=== PATIENT | female | born 1940 | race Caucasian/White ===

== ENCOUNTER 2017-01-08 10:48 | Inpatient (IN) | payer MEDICARE ==
[2017-01-08] MEDS ORDERED: NS 0.9% 1000 ML* 1,000 ML IV SCH (11:15)
[2017-01-08] MEDS ORDERED: Meclizine TAB* 12.5 MG PO ONE (11:15)
[2017-01-08 11:29] LABS: Hematocrit 34 % (35-47); Hemoglobin 11.2 g/dl (12.0-16.0); Mean Corpuscular HGB Conc 33 g/dl (31-36); Mean Corpuscular Hemoglobin 31 pg (27-31); Mean Corpuscular Volume 95 fL (80-97); Mean Platelet Volume 8 um3 (7.4-10.4); Red Blood Count 3.57 10^6/ul (4.0-5.4); Red Cell Distribution Width 13 % (10.5-15); White Blood Count 6.6 10^3/ul (3.5-10.8)
[2017-01-08 11:44] LABS: Albumin 3.5 g/dL (3.2-5.2); BUN/Creatinine Ratio 15.1 (8-20); C Reactive Protein 49.59 mg/L (< 5.00); EGFR African American 30.3 (>60); EGFR Non-African American 23.5 (>60); Globulin 3.4 g/dL (2-4); Potassium 3.4 mmol/L (3.5-5.0); Total Bilirubin 0.4 mg/dL (0.2-1.0); Total Protein 6.9 g/dL (6.4-8.9)
[2017-01-08 11:46] LABS: Troponin I 0.01 ng/mL (<0.04)
--- NOTE | 2017-01-08 12:13 | RAD ---
Indication: Dizziness. CT of the brain was performed without IV contrast. Ventricular structures are midline. No midline shift is noted. Central and cortical atrophy is noted. Periventricular lucency consistent with chronic ischemic white matter changes are noted. There is no intracranial mass or hemorrhage. The bony calvaria shows no fracture. Mastoid air cells and paranasal sinuses are clear. IMPRESSION: Chronic ischemic White matter change without evidence of intracranial mass or hemorrhage.
[2017-01-08 12:19] LABS: TSH (Thyroid Stimulating Horm) 0.66 mcIU/mL (0.34-5.60)
--- NOTE | 2017-01-08 13:22 | RAD ---
Indication: Dizziness. Single frontal view of the chest performed at 1125 hours was reviewed. Comparison is made with previous exam dated August 14, 2012. No mediastinal shift is noted. Heart is of normal size and configuration. Lung henao appear clear. IMPRESSION: NO ACTIVE CARDIOPULMONARY DISEASE IS NOTED.
[2017-01-08] MEDS ORDERED: Dextrose 50% Syringe 50 ML* 25 GM/50 ML SYRINGE IV PUSH PRN (15:15)
[2017-01-08] MEDS ORDERED: Potassium Chlor TAB* 20 MEQ TAB.ER PO ONE (15:31)
[2017-01-08] MEDS: NS 0.9% 1000 ML* 1,000 ML IV SCH ×2 (15:38→22:10)
[2017-01-08] MEDS ORDERED: Aspirin Low Dose CHEW TAB* 81 MG PO ONE (15:53)
[2017-01-08] MEDS ORDERED: Aspirin Low Dose CHEW TAB* 81 MG ONE (15:59)
[2017-01-08] MEDS: Insulin LISPRO* 1 UNITS UNIT SUBCUT SCH (16:18)
[2017-01-08 17:29] LABS: Urine Bacteria 1+ (Absent); Urine Bilirubin Negative (Negative); Urine Glucose Negative (Negative); Urine Nitrite Negative (Negative)
--- NOTE | 2017-01-08 17:51 | ED ---
Jai Jacobson Rebecca, scribed for Nishant Cline MD on 01/08/17 at 1118 . Dizziness - HPI Summary HPI Summary: Pt is a 76 y/o F BIBA who presents to ED c/o moderate dizziness. Reports that dizziness began last night and has been constant since last night, characterized as the room spinning and near syncopal. Additionally c/o fever/ chills last night, nausea (resolved), mild rhinorrhea, and eye drainage/ pruritis. Notes an episode of being unable to walk up stairs earlier today, stating "my legs would not work" which has resolved. Denies ear pain, cough, CP , palpitations. No PMHx CHF. - History Of Current Complaint Chief Complaint: EDSyncope Stated Complaint: SYNCOPE Time Seen by Provider: 01/08/17 11:08 Hx Obtained From: Patient Onset/Duration: Still Present Timing: Constant Severity Currently: Moderate Character: Room Spinning - and near syncopal Associated Signs And Symptoms: Positive: Nausea, Inability to Walk - One episode , resolved, Other: - Rhinorrhea, eye drainage and pruritis. Negative: Chest Pain, Palpitations - Allergies/Home Medications Allergies/Adverse Reactions: Allergies Allergy/AdvReac Type Severity Reaction Status Date / Time Penicillins Allergy Severe Rash Verified 06/27/13 16:20 Tetanus Toxoid Allergy Severe RASH, GI Verified 06/27/13 16:20 UPSET SPIDER BITES Allergy Severe "THEY Uncoded 06/27/13 16:21 DON'T HEAL" Home Medications: Home Medications Alendronate Sodium [Fosamax-] 70 mg PO Q7D 01/08/17 [History Confirmed 01/08/17] Atenolol & Chlorthalidone [Atenolol/Chlorthalidone 50-25 mg-] 1 tab PO BEDTIME 01/08/17 [History Confirmed 01/08/17] Cholecalciferol [Vitamin D3] 5,000 unit PO DAILY 01/08/17 [History Confirmed 10/22] Magnesium 500 mg PO DAILY 01/08/17 [History Confirmed 01/08/17] Sitagliptin (NF) [Januvia (NF)] 50 mg PO DAILY 01/08/17 [History Confirmed 01/08] PMH/Surg Hx/FS Hx/Imm Hx Endocrine/Hematology History: Reports: Hx Diabetes - METFORMIN Denies: Hx Anticoagulant Therapy Cardiovascular History: Reports: Hx Hypertension - LISINOPRIL, HCTZ Respiratory History: Denies: Hx Asthma - Surgical History Surgery Procedure, Year, and Place: hysterectomy Infectious Disease History: No Infectious Disease History: Denies: Traveled Outside the [place] in Last 30 Days - Family History Known Family History: Positive: Unknown - Adopted - Social History Alcohol Use: None Substance Use Type: Reports: None Review of Systems Positive: Fever, Chills Positive: Drainage - watery, Other - Pruritis Positive: Nasal Discharge - mild. Negative: Ear Ache Negative: Palpitations, Chest Pain Negative: Cough Positive: Nausea - resolved Positive: Other - Inability to walk earlier today, resolved Neurological: Other - Dizziness (room spinning and near syncopal) All Other Systems Reviewed And Are Negative: Yes Physical Exam - Summary Physical Exam Summary: General: well-appearing, no pain distress Skin: warm, skin color reflects adequate perfusion, dry Head: normal Eyes: EOMI, ANGELIA ENT: normal Neck: supple, nontender Respiratory: CTA, breath sounds present Cardiovascular: RRR Abdomen: soft, nontender Bowel: present Musculoskeletal: normal, strength/ROM intact Neuro: normal, sensory/motor intact, A&O x3 Psych: affect/mood appropriate Triage Information Reviewed: Yes Vital Signs On Initial Exam: Initial Vitals Temp Pulse Resp BP Pulse Ox 97.9 F 82 17 138/57 95 01/08/17 10:59 01/08/17 10:59 01/08/17 10:59 01/08/17 10:59 01/08/17 10:59 Vital Signs Reviewed: Yes Diagnostics - Vital Signs Vital Signs Temp Pulse Resp BP Pulse Ox 01/08/17 11:03 78 01/08/17 10:59 97.9 F 82 17 138/57 95 - Laboratory Lab Results: Lab Results 01/08/17 01/08/17 01/08/17 Range/Units 11:15 11:15 11:15 WBC 6.6 (3.5-10.8) 10^3/ul RBC 3.57 L (4.0-5.4) 10^6/ul Hgb 11.2 L (12.0-16.0) g/dl Hct 34 L (35-47) % MCV 95 (80-97) fL MCH 31 (27-31) pg MCHC 33 (31-36) g/dl RDW 13 (10.5-15) % Plt Count 197 (150-450) 10^3/ul MPV 8 (7.4-10.4) um3 Neut % (Auto) 82.4 (38-83) % Lymph % (Auto) 9.3 L (25-47) % Graham % (Auto) 7.4 (1-9) % Eos % (Auto) 0.1 (0-6) % Baso % (Auto) 0.8 (0-2) % Absolute Neuts (auto) 5.5 (1.5-7.7) 10^3/ul Absolute Lymphs (auto) 0.6 L (1.0-4.8) 10^3/ul Absolute Monos (auto) 0.5 (0-0.8) 10^3/ul Absolute Eos (auto) 0 (0-0.6) 10^3/ul Absolute Basos (auto) 0.1 (0-0.2) 10^3/ul Absolute Nucleated RBC 0 10^3/ul Nucleated RBC % 0 INR (Anticoag Therapy) 1.02 (0.89-1.11) APTT 25.1 L (26.0-36.3) seconds Sodium 130 L (133-145) mmol/L Potassium 3.4 L (3.5-5.0) mmol/L Chloride 98 L (101-111) mmol/L Carbon Dioxide 25 (22-32) mmol/L Anion Gap 7 (2-11) mmol/L BUN 31 H (6-24) mg/dL Creatinine 2.05 H (0.51-0.95) mg/dL Est GFR ( Amer) 30.3 (>60) Est GFR (Non-Af Amer) 23.5 (>60) BUN/Creatinine Ratio 15.1 (8-20) Glucose 168 H (70-100) mg/dL Lactic Acid (0.5-2.0) mmol/L Calcium 9.0 (8.6-10.3) mg/dL Magnesium 2.0 (1.9-2.7) mg/dL Total Bilirubin 0.40 (0.2-1.0) mg/dL AST 12 L (13-39) U/L ALT 8 (7-52) U/L Alkaline Phosphatase 49 (34-104) U/L Total Creatine Kinase 73 (10-223) U/L CK-MB (CK-2) 1.2 (0.6-6.3) ng/mL Troponin I 0.01 (<0.04) ng/mL C-Reactive Protein 49.59 H (< 5.00) mg/L B-Natriuretic Peptide ( - 100) pg/mL Total Protein 6.9 (6.4-8.9) g/dL Albumin 3.5 (3.2-5.2) g/dL Globulin 3.4 (2-4) g/dL Albumin/Globulin Ratio 1.0 (1-3) Lipase 26 (11.0-82.0) U/L Procalcitonin (<0.6) ng/mL TSH 0.66 (0.34-5.60) mcIU/mL 01/08/17 01/08/17 01/08/17 Range/Units 11:15 11:15 11:15 WBC (3.5-10.8) 10^3/ul RBC (4.0-5.4) 10^6/ul Hgb (12.0-16.0) g/dl Hct (35-47) % MCV (80-97) fL MCH (27-31) pg MCHC (31-36) g/dl RDW (10.5-15) % Plt Count (150-450) 10^3/ul MPV (7.4-10.4) um3 Neut % (Auto) (38-83) % Lymph % (Auto) (25-47) % Graham % (Auto) (1-9) % Eos % (Auto) (0-6) % Baso % (Auto) (0-2) % Absolute Neuts (auto) (1.5-7.7) 10^3/ul Absolute Lymphs (auto) (1.0-4.8) 10^3/ul Absolute Monos (auto) (0-0.8) 10^3/ul Absolute Eos (auto) (0-0.6) 10^3/ul Absolute Basos (auto) (0-0.2) 10^3/ul Absolute Nucleated RBC 10^3/ul Nucleated RBC % INR (Anticoag Therapy) (0.89-1.11) APTT (26.0-36.3) seconds Sodium (133-145) mmol/L Potassium (3.5-5.0) mmol/L Chloride (101-111) mmol/L Carbon Dioxide (22-32) mmol/L Anion Gap (2-11) mmol/L BUN (6-24) mg/dL Creatinine (0.51-0.95) mg/dL Est GFR ( Amer) (>60) Est GFR (Non-Af Amer) (>60) BUN/Creatinine Ratio (8-20) Glucose (70-100) mg/dL Lactic Acid 2.5 H* (0.5-2.0) mmol/L Calcium (8.6-10.3) mg/dL Magnesium (1.9-2.7) mg/dL Total Bilirubin (0.2-1.0) mg/dL AST (13-39) U/L ALT (7-52) U/L Alkaline Phosphatase (34-104) U/L Total Creatine Kinase (10-223) U/L CK-MB (CK-2) (0.6-6.3) ng/mL Troponin I (<0.04) ng/mL C-Reactive Protein (< 5.00) mg/L B-Natriuretic Peptide 68 ( - 100) pg/mL Total Protein (6.4-8.9) g/dL Albumin (3.2-5.2) g/dL Globulin (2-4) g/dL Albumin/Globulin Ratio (1-3) Lipase (11.0-82.0) U/L Procalcitonin 0.2 (<0.6) ng/mL TSH (0.34-5.60) mcIU/mL Result Diagrams: 01/08/17 11:15 01/08/17 11:15 Lab Statement: Any lab studies that have been ordered have been reviewed, and results considered in the medical decision making process. - Radiology CXR Xray Interpretation: No Acute Changes - NO ACTIVE CARDIOPULMONARY DISEASE IS NOTED. Radiology Interpretation Completed By: Radiologist - CT Brain CT CT Interpretation: No Acute Changes - Chronic ischemic White matter change without evidence of intracranial mass or hemorrhage. CT Interpretation Completed By: Radiologist - EKG 1111 Cardiac Rate: NL - 74 bpm EKG Rhythm: Sinus Rhythm ST Segment: Normal Ectopy: None EKG Interpretation: LA interval 248 National Institutes Of Health - NIH Scale Level of Consciousness: Alert/Keenly Responsive Ask Patient the Month and His/Her Age: Both Correct Ask Pt to Open/Close Eyes and School Transportation Supervisor/Release Non-Paretic Hand: Both Correctly Best Gaze (Only Horizontal Eye Movement): Normal Visual Field Testing: No Visual Loss Facial Paresis-Pt to Smile & Close Eyes or Grimace Symmetry: Normal/Symmetrical Motor Function - Right Arm: No Drift-Holds 10 Seconds Motor Function - Left Arm: No Drift-Holds 10 Seconds Motor Function - Right Leg: No Drift-Holds 10 Seconds Motor Function - Left Leg: No Drift-Holds 10 Seconds Limb Ataxia-Must be out of Proportion to Weakness Present: Absent Sensory (Use Pinprick to Test Arms/Legs/Trunk/Face): Normal Best Language (Describe Picture, Name Items): No Aphasia Dysarthria (Read Several Words): Normal Extinction and Inattention: No Abnormality Total Score: 0 Re-Evaluation - Re-Evaluation First Eval Re-Evaluation Time: 13:35 Change: Unchanged Comment: Received more Hx from the pt. She said that yesterday her RUE was shaking and could not stop it. Today, everything was weak but the RUE and RLE more so. The NIH stroke scale is still 0 and GCS is still 15. On reexamination there is no drift, but the RLE and RUE are slightly weaker than the LUE and LLE. Dizzy Course/Dx - Course Course Of Treatment: NO CRITICAL CARE TIME. ADMIT HOSPITALIST STABLE. - Diagnoses Provider Diagnoses: Dizziness, Near syncope, Right sided weakness - Provider Notifications Discussed Care Of Patient With: Ariel Richardson Time Discussed With Above Provider: 13:47 Instructed by Provider To: Other - Accepts pt for admission. Discharge - Discharge Plan Condition: Stable Disposition: ADMITTED TO [facility] documentation as recorded by the Jai sandoval Rebecca accurately reflects the service I personally performed and the decisions made by me, Nishant Cline MD.
--- NOTE | 2017-01-08 20:00 | PN ---
Hospitalist Progress Note Patient with recurrent complaints of intermittent RUE numbness/weakness that appears to be increasing in frequency. Still reports vertigo and ataxia. Neurology consult requested, as this may represent multiple infarct. Discussed with Dr. Zapata that an MRI this evening may be beneficial for the patient, given the complexity of patient complaints. Discussed case with Dr. Ceron, who agreed to add MRI this evening, as staff is already in house.
[2017-01-08] MEDS: cefTRIAXone VIAL(*) 1,000 MG in NS 0.9% 50 ML* 50 ML IVPB SCH (20:29)
[2017-01-08] MEDS: Heparin VIAL(*) 5000 UNITS/ML VIAL (FIVE THOUSAND) SUBCUT SCH (20:36)
[2017-01-08] MEDS: Meclizine TAB* 12.5 MG PO SCH (20:38)
--- NOTE | 2017-01-08 22:50 | HP ---
CC: Sherwin Lowry DO* MEDICINE HISTORY AND PHYSICAL: DATE OF ADMISSION: 01/08/17 PROVIDER: Anu Leos NP ATTENDING PHYSICIAN: Dr. Demond Richardson *(as dictated by Anu Leos NP) PRIMARY CARE PROVIDER: Sherwin Lowry DO CHIEF COMPLAINT: Near syncope. HISTORY OF PRESENT ILLNESS: Ms. Culp is a 76-year-old female who was brought in by ambulance to the ER with complaints of dizziness and a near syncopal episode. The patient reports not feeling well last evening and having general malaise and fatigue persisting in to this morning. This was accompanied by some dizziness that has become constant. The patient reports room spinning with these episodes. This morning, she describes her morning routine, which has consisted of her going out to the barn to feed her horses at which point she started feeling more dizzy and then reports accompanying nausea. She is attempting to walk up the stairs of the barn and states that she "could not motivate herself to do this" and had difficulty initiating this movement. When she got to the stairs, she had difficulty figuring out how to get up the stairs and state that her legs simply gave out. Her grandson was with her at that time, who called her son, who helped her up and got her into a seated position. She denies any head injury and family members do not feel that she hit her head. The patient states that she may have lost consciousness for a few seconds. She reports of subjective fevers last night feeling hot and cold. She also reports accompanying nausea, which has now resolved as well as some mild rhinorrhea and eye drainage and pruritus. The patient denies any chest pain, palpitations, shortness of breath, cough. She denies any abdominal pain, nausea , or vomiting. She states that she had a couple of episodes of diarrhea following her Fosamax on Saturday, but this is normal for her. She denies any changes of speech or focal weakness or sensory loss until her time here in the ER where she now complains of right-sided weakness. She complains of room spinning, but no dysphagia or hearing changes. She denies any new rashes or lesions or joint pains, but states that she does chronically have arthritis. Of note, the patient states that she recently saw Dr. Campbell for evaluation of kidney failure and was told that she does "not yet quite have stage 1 renal failure." In the ER, the patient did have a CT of the brain, which showed no acute intracranial pathology. Chest x-ray was also negative for any acute pathology. The patient's laboratory work shows lactic acid of 2.5, sodium 130, potassium 3.4 and elevated creatinine of 2.05, CRP of 49. PAST MEDICAL HISTORY: 1. Type 2 diabetes. 2. Hypertension. 3. Renal insufficiency. HOME MEDICATIONS: 1. Januvia 50 mg daily. 2. Magnesium 500 mg daily. 3. Fosamax 70 mg q.7 days. 4. Cholecalciferol 5000 units daily. 5. Atenolol/chlorthalidone 50/25 one tab at bedtime. 6. Lisinopril/hydrochlorothiazide 10/12.5 one tab daily. ALLERGIES: Include TETANUS, PENICILLIN. FAMILY HISTORY: Unknown, the patient is adopted. SOCIAL HISTORY: She denies any history of tobacco or illicit drug use. She reports very rare alcohol use. She works at a horse farm. She lives with her son, Magnus Culp, who is also her healthcare proxy. He can be reached at . REVIEW OF SYSTEMS: As per HPI. A 14-point review of systems was completed. PHYSICAL EXAMINATION GENERAL: Ms. Culp is a 76-year-old female, who is lying in ED stretcher, in no acute distress. VITAL SIGNS: Temperature 97.0, heart rate 70, respiratory rate 16, blood pressure 130/58, and O2 saturation is 97% on room air. HEENT: Head is atraumatic, normocephalic. Face is symmetrical. I did not appreciate any facial drooping at this time. Oral mucosa appears somewhat dry. NECK: Supple. No lymphadenopathy appreciated. No thyromegaly noted. RESPIRATORY: Lungs are clear to auscultation. No accessory muscle use. CARDIAC: S1 and S2 heart sounds. Regular rate and rhythm. No murmurs, rubs or gallops. No peripheral edema noted. Distal pulses are 2+. ABDOMEN: Soft, nontender, and nondistended. Bowel sounds present times all 4 quadrants. MUSCULOSKELETAL: There is no clubbing or cyanosis. The patient has full range of motion. SKIN: Limited assessment, but appears grossly intact. NEURO: The patient moves all extremities. There are no focal deficits; however , the patient has 5/5 strength in the left upper and lower extremities and 4/5 strength in the right upper and lower extremities. There is hesitancy with finger- to-nose motion on the right side and notable shaking. There is hesitancy with heel- to-anderson motion as well as rapid finger motion. The patient had difficulty initiating movement to stand and was very shaky. No pronator drift noted. No changes to speech noted. Sensation is intact to the light touch to the bilateral lower extremities. PSYCH: She is alert and oriented x3. Affect is appropriate. DIAGNOSTIC STUDIES/LAB DATA: CBC: WBC 6.6, hemoglobin 11.2, hematocrit 34, platelet count 197. CMP: Sodium 130, potassium 3.4, chloride 98, carbon dioxide 25, BUN 31, creatinine 2.05, glucose 168, lactic acid 2.5, calcium 9.0, magnesium 2.0. Total bilirubin 0.4, AST 12, ALT 8, alk phos 49. CRP is 49.59. BNP is 68. Albumin 3.5. TSH 0.66. Chest x-ray shows no acute cardiopulmonary disease. CT of the brain shows chronic ischemic white matter change without evidence of intracranial mass or hemorrhage. EKG shows sinus rhythm with a prolonged NH interval. ASSESSMENT AND PLAN: Ms. Culp is a 76-year-old female who presents today with concern for dizziness and right-sided weakness. She will be admitted under observation to the telemetry unit. Plan is as follows: 1. Dizziness with near syncope. Admit to telemetry. The origin of this is unclear. It appears that the patient may have concerns for potential infection , perhaps viral. I will check a Lyme serology. Additionally, I am also awaiting a UA. I will add on a procalcitonin. She does have an elevated lactic acid and a mildly elevated CRP. This may be indicative for acute infection, although with the accompanying right-sided weakness, there is also concern for stroke. In any case, we will monitor on telemetry, hydrate her, check for infection, have a PT consult, and order an MRI of the brain as well as an echocardiogram for neurological workup. Continue to monitor patient closely. 2. Right-sided weakness. Again, this is new per the patient and her family, but with the accompanying dizziness, it is not clear if this represents a left hemispheric stroke or concern for posterior process, but in any case, we will complete the workup for transient ischemic attack/cerebrovascular accident and continue with neurological checks. PT and OT have been ordered. We will continue to follow closely. 3. Hyponatremia. Suspect this is secondary to volume depletion as the patient is on chlorthalidone and hydrochlorothiazide at home. We will give her IV normal saline and recheck her BMP tomorrow morning. 4. Hypokalemia. Again, I think this is secondary to diuretic use. Replace potassium today, recheck BMP tomorrow. 5. Acute kidney injury. The patient does have noted renal insufficiency, but does appear to be above her baseline currently. We will hydrate her and recheck her labs in the morning. We will also obtain records from her PCP in order to better establish a baseline for the patient's renal function. 6. Lactic acidosis. The patient is mildly elevated at 2.5, this may be secondary to her near syncopal episode. We will recheck her lactic acid, continue hydration to ensure resolution. 7. Type 2 diabetes. We will hold her home Januvia at this time. Check a hemoglobin A1c. We will maintain the patient on lispro sliding scale insulin at this time. 8. Hypertension. The patient is currently normotensive. I will hold her lisinopril, hydrochlorothiazide and chlorthalidone in the presence of acute on chronic renal injury. We can resume her atenolol if necessary; but at this time , the patient is not requiring any medications for blood pressure control; but with the potential for possible cerebrovascular accident, we will hold on her antihypertensives to allow for permissive hypertension in the event that she has a positive neurological finding. 9. FEN. The patient is ordered consistent carbohydrate diet and IV normal saline. 10. DVT prophylaxis. She is on subcu heparin. 11. Code status. The patient is a full code. TIME SPENT: Time spent on this admission was approximately 60 minutes, more than half the time was spent [id number] with the patient obtaining history and physical, performing physical examination, reviewing plan of care. Plan of care was also reviewed with my attending, Dr. Richardson, who is in agreement. ANU LEOS, REFINERY OPERATOR [id number]/[facility] #: [id number] SHARMIN
--- NOTE | 2017-01-08 23:57 | CONS ---
CC: Sherwin Lowry DO* CONSULTATION REPORT: DATE OF CONSULTATION: 01/08/17 REQUESTING NURSE PRACTITIONER: Zakia Rodriguez NP HISTORY OF PRESENT ILLNESS: Ana Cristina Culp is a 76-year-old woman with a history of diabetes, hypertension, chronic kidney disease and intermittent right hand numbness and arthritis, particularly in the right knee, who walks with a cane, who now presents with multiple symptoms from dizziness to feeling hot to vomiting, and to weakness and numbness. Ana Cristina indicates that yesterday she started feeling off, she was doing chores in the barn and then started feeling close and then far away and then close. She had sweats, she felt like she might have had a fever, but she had broken her thermometer. This morning she had decreased p.o. intake, she only had an almond bar and she vomited, she stumbled and felt weak and it was hard for her to get upstairs. She denied any loss of vision, chest pain, chest pressure, shortness of breath, clear focal new numbness or weakness of arms or legs. She indicates that since she has been in the hospital, she has noted the intermittent hand numbness. In the past, she had had numbness in digits 1 and 2 of the right hand. Now it is occurring more frequently and involving the whole hand. PAST MEDICAL HISTORY: Includes hypertension, diabetes, chronic kidney disease, sciatica. MEDICATIONS: Include: 1. Januvia 50 mg p.o. daily. 2. Magnesium 500 mg p.o. daily. 3. Fosamax 70 mg p.o. q. week. 4. Vitamin D3 5000 IU p.o. daily. 5. Atenolol and chlorthalidone 50/25 mg 1 tablet p.o. q. p.m. 6. Lisinopril/hydrochlorothiazide 10/12.5 mg 1 tablet p.o. daily. ALLERGIES: Include PENICILLIN, TETANUS TOXOID, and SPIDER BITES. FAMILY HISTORY: Noncontributory. She added that her son had COPD and was a smoker. REVIEW OF SYSTEMS: She denies any change in vision, new numbness or weakness of arms and legs other than that listed in the HPI, change in bowel or bladder habits. There has been vomiting. She has had sweats, but just yesterday. There has been no weight loss, no high fevers for unknown reason, no new rashes. She denies chest pain, pressure, palpitations, shortness of breath. She has had some mosquito bites, but no other bug bites. She has baseline arthritis and pain, baseline history of sciatica. PHYSICAL EXAMINATION: Most recent blood pressure was 127/47, pulse was 72, respiratory rate 18, saturation was 98%, temperature was 98.4 degrees Fahrenheit. She had regular cardiac rhythm. Her lungs were clear to auscultation. There was no evidence of peripheral edema. She had good peripheral pulses. Poor dentition was noted. She was awake, alert, oriented. Had normal language function, adequate fund of knowledge. She had full extraocular movements with no nystagmus, full henao to confrontation. Her pupils were equal and responsive to light. I had a hard time visualizing her fundi. She had full henao to confrontation. Her facial expression, sensation , and hearing were equal. Palate was upgoing. Tongue was midline. Sternocleidomastoid and trapezius were 5/5 in strength. There was normal bulk and tone. No pronator drift. She gave good strength in her upper and lower extremities on the left hand side. On the right hand side, she had variable give away weakness when right arm was tested individually. When tested with the other arm, she had symmetric strength. In the lower extremities on the right, she again had good strength if tested together, but otherwise had give away weakness in right hip flexion, knee flexion, and extension. Foot dorsiflexion was strong. Reflexes were 2+ and symmetric in the upper extremities, 2+ at the knees, 1+ at the ankles. Toes were equivocal. Vibration was felt at the toes, decreased by about 20 seconds. Proprioception was intact. She denied any asymmetries to pinprick, cold, or light touch. No dysmetria was noted. She was extremely slow, making an attempt to do heel to anderson movements with her right leg or finger to nose movement with the right arm. There was some variable tremor in the right arm. DIAGNOSTIC STUDIES/LAB DATA: Includes chest x-ray, which showed no evidence of active disease. Her CT of the brain was reviewed directly and shows evidence of chronic ischemic change in the subcortical and periventricular region. Please see report for details. Her laboratory results show CBC with a normal white count. Her hemoglobin and hematocrit are slightly low at 11.2 and 34, platelets were within normal limits. Her metabolic panel showed a sodium that was slightly low at 130, potassium was 3.4, chloride was 98, BUN and creatinine were 31 and 2.05 with a BUN and creatinine ratio of 15.1. Glucose was 111. Lactate was initially elevated at 2.5, repeated at 0.7. Liver function tests were otherwise normal or low. C-reactive protein was elevated at 49.59. Her troponin I was 0.01. Her CK was within normal limits. TSH was normal. Her urinalysis showed trace esterase, 1+ bacteria, present epithelial cells. IMPRESSION: Ana Cristina Culp is a 76-year-old woman with history of diabetes, hypertension, chronic kidney disease with chronic history of intermittent right hand numbness and history of arthritis walking with a cane, which particularly affects her right knee, now with multiple symptoms from change in perception of space and dizziness to feeling hot and questioning if she had a fever to overall not feeling well and vomiting this morning with decreased p.o. intake along with feeling stumbling, feeling weak, and having increased intermittent numbness of her right hand. Her exam has nonphysiologic features, which makes it hard to determine if there is underlying focal lesion. I agree with the admission and workup for large differential diagnosis of her symptoms. In regards to Neurology, certainly getting an MRI to evaluate for stroke is appropriate. It is hard to tell by exam if there is any new lesion. Certainly, there may be an infectious etiology. Monitoring on telemetry and potentially getting an echocardiogram, will look for cause of potential presyncope symptoms. Her symptoms may be multifactorial in etiology, and a component of arthritis may be contributing to some of her difficulties maintaining strength on testing. We plan to follow with you. [id number]/[facility] #: [id number] SHARMIN
[2017-01-09 05:43] LABS: Hematocrit 31 % (35-47); Hemoglobin 10.5 g/dl (12.0-16.0); Mean Corpuscular HGB Conc 33 g/dl (31-36); Mean Corpuscular Hemoglobin 32 pg (27-31); Mean Corpuscular Volume 95 fL (80-97); Mean Platelet Volume 8 um3 (7.4-10.4); Red Blood Count 3.32 10^6/ul (4.0-5.4); Red Cell Distribution Width 14 % (10.5-15); White Blood Count 7.3 10^3/ul (3.5-10.8)
[2017-01-09 05:57] LABS: BUN/Creatinine Ratio 15.4 (8-20); Calcium 8.5 mg/dL (8.6-10.3); EGFR African American 37.8 (>60); EGFR Non-African American 29.4 (>60); HDL Cholesterol 27.5 mg/dL; Potassium 4.1 mmol/L (3.5-5.0)
[2017-01-09] MEDS: Meclizine TAB* 12.5 MG PO SCH ×3 (07:04→21:21)
[2017-01-09] MEDS: Heparin VIAL(*) 5000 UNITS/ML VIAL (FIVE THOUSAND) SUBCUT SCH ×3 (07:04→21:21)
[2017-01-09] MEDS: NS 0.9% 1000 ML* 1,000 ML IV SCH (07:54)
[2017-01-09] MEDS: Insulin LISPRO* 1 UNITS UNIT SUBCUT SCH ×3 (07:57→16:29)
[2017-01-09] MEDS: Cholecalciferol TAB* 1000 UNITS PO SCH (08:38)
[2017-01-09] MEDS: Aspirin Low Dose CHEW TAB* 81 MG PO SCH (08:38)
[2017-01-09] MEDS: MAGNESIUM 500 MG PO SCH (08:39)
--- NOTE | 2017-01-09 10:43 | PN ---
Progress Note - Progress Note Date of Service: 01/09/17 SOAP: Subjective: This is a 76 yo white female with PMH of HTN, DM, CKD, Hx of intermittent hand numbness and neuropathy, arthritis and sciatica, that presented to the ER with dizziness, fatigue, and near syncope after walking upstairs. She is feeling weaker now today with fatigue but is not feeling dizzy. She is SOB while ambulating with a visible right hand intention tremor that began yesterday. She reports increasing diarrhea in the past month going 4-5 x/day since starting Fosamax. She reports numbness and weakness of the entire hand that happens 4-5x/ day. Patient used to have occasional neuropathy and weakness in the first digit and thumb that has since increased since near syncopal event. Patient spiked a fever over night of 101.3 that has since subside. She denies chills, chest pains, nausea, or dizziness. She denies any tick bites but reports being in proximity of ticks with taking them off grandson and her horses. Active medications: Aspirin (Aspirin Low Dose Tab*) 81 mg PO DAILY [facility] Last Admin: 01/09/17 08:38 Dose: 81 mg Cholecalciferol (Vitamin D Tab*) 5,000 units PO DAILY [facility] Last Admin: 01/09/17 08:38 Dose: 5,000 units Dextrose (D50w Syringe 50 Ml*) 12.5 gm IV PUSH .FOR FS < 60 - SS PRN PRN Reason: FS < 60 Heparin Sodium (Porcine) (Heparin Vial(*)) 5,000 units SUBCUT Q8HR [facility] Last Admin: 01/09/17 14:25 Dose: 5,000 units Sodium Chloride (Ns 0.9% 1000 Ml*) 1,000 mls @ 100 mls/hr IV PER RATE [facility] Last Admin: 01/09/17 07:54 Dose: 100 mls/hr Ceftriaxone Sodium 1,000 mg/ (Sodium Chloride) 50 mls @ 200 mls/hr IVPB Q24H [facility] Last Admin: 01/08/17 20:29 Dose: 200 mls/hr Insulin Human Lispro (Humalog*) 0 units SUBCUT AC [facility] PRN Reason: Protocol Last Admin: 01/09/17 12:37 Dose: Not Given Meclizine HCl (Antivert Tab*) 25 mg PO Q8HR [facility] Last Admin: 01/09/17 14:25 Dose: 25 mg Non-Formulary Medication (Magnesium [Magnesium]) 500 mg PO DAILY [facility] Last Admin: 01/09/17 08:39 Dose: Not Given Allergies Allergy/AdvReac Type Severity Reaction Status Date / Time Penicillins Allergy Severe Rash Verified 06/27/13 16:20 Tetanus Toxoid Allergy Severe RASH, GI Verified 06/27/13 16:20 UPSET SPIDER BITES Allergy Severe "THEY Uncoded 06/27/13 16:21 DON'T HEAL" Objective: Vital Signs: Temp Pulse Resp BP Pulse Ox 99.1 F 76 20 140/58 97 01/09/17 07:30 01/09/17 07:30 01/09/17 07:48 01/09/17 07:30 01/09/17 07:30 General: This is a elderly white female alert and oriented X3 in NAD. HEENT: Head is atraumatic and normocephalic. PEERLA Skin: Some areas of xeroderma underneath the breast and underneath the abdomen. No areas of rash, lesions, bumps/bumps. Lungs: Chest is symmetric and clear to ausculation across all lung henao. Heart: RRR, S1 and S2 split, no murmurs, rubs or gallops. Abdomen: Normoactive bowel sounds in all four quadrants. Abdomen is soft and nontender. Extremities: PP intact without edema Neuro: Leg strength 5/5 throughout bilaterally, Weakness in the wrist flexion and extension and sales review clerk on the right side 3/5 otherwise strength 5/5 in UE. EOMI , finger to nose intact bilaterally with a notable intention tremor in the right hand. Sensation intact throughout all dermatones. Patient is able to make faces with negative pronator drift and romberg. WBC 7.3 10^3/ul (3.5-10.8) 01/09/17 05:20 RBC 3.32 10^6/ul (4.0-5.4) L 01/09/17 05:20 Hgb 10.5 g/dl (12.0-16.0) L 01/09/17 05:20 Hct 31 % (35-47) L 01/09/17 05:20 MCV 95 fL (80-97) 01/09/17 05:20 MCH 32 pg (27-31) H 01/09/17 05:20 MCHC 33 g/dl (31-36) 01/09/17 05:20 RDW 14 % (10.5-15) 01/09/17 05:20 Plt Count 175 10^3/ul (150-450) 01/09/17 05:20 MPV 8 um3 (7.4-10.4) 01/09/17 05:20 Neut % (Auto) 69.2 % (38-83) 01/09/17 05:20 Lymph % (Auto) 19.4 % (25-47) L 01/09/17 05:20 [place] % (Auto) 10.0 % (1-9) H 01/09/17 05:20 Eos % (Auto) 0.3 % (0-6) 01/09/17 05:20 Baso % (Auto) 1.1 % (0-2) 01/09/17 05:20 Absolute Neuts (auto) 5.0 10^3/ul (1.5-7.7) 01/09/17 05:20 Absolute Lymphs (auto) 1.4 10^3/ul (1.0-4.8) 01/09/17 05:20 Absolute Monos (auto) 0.7 10^3/ul (0-0.8) 01/09/17 05:20 Absolute Eos (auto) 0 10^3/ul (0-0.6) 01/09/17 05:20 Absolute Basos (auto) 0.1 10^3/ul (0-0.2) 01/09/17 05:20 Absolute Nucleated RBC 0 10^3/ul 01/09/17 05:20 Nucleated RBC % 0 01/09/17 05:20 INR (Anticoag Therapy) 1.02 (0.89-1.11) 01/08/17 11:15 APTT 25.1 seconds (26.0-36.3) L 01/08/17 11:15 Sodium 134 mmol/L (133-145) 01/09/17 05:20 Potassium 4.1 mmol/L (3.5-5.0) 01/09/17 05:20 Chloride 105 mmol/L (101-111) 01/09/17 05:20 Carbon Dioxide 22 mmol/L (22-32) 01/09/17 05:20 Anion Gap 7 mmol/L (2-11) 01/09/17 05:20 BUN 26 mg/dL (6-24) H 01/09/17 05:20 Creatinine 1.69 mg/dL (0.51-0.95) H 01/09/17 05:20 Est GFR ( Amer) 37.8 (>60) 01/09/17 05:20 Est GFR (Non-Af Amer) 29.4 (>60) 01/09/17 05:20 BUN/Creatinine Ratio 15.4 (8-20) 01/09/17 05:20 Glucose 95 mg/dL (70-100) 01/09/17 05:20 POC Glucose (mg/dL) 82 mg/dL (74-106) 01/09/17 12:31 Hemoglobin A1c 6.4 % (Less than 6.0) H 01/08/17 11:15 Lactic Acid 0.7 mmol/L (0.5-2.0) 01/08/17 15:40 Calcium 8.5 mg/dL (8.6-10.3) L 01/09/17 05:20 Magnesium 2.0 mg/dL (1.9-2.7) 01/08/17 11:15 Total Bilirubin 0.40 mg/dL (0.2-1.0) 01/08/17 11:15 AST 12 U/L (13-39) L 01/08/17 11:15 ALT 8 U/L (7-52) 01/08/17 11:15 Alkaline Phosphatase 49 U/L (34-104) 01/08/17 11:15 Total Creatine Kinase 73 U/L (10-223) 01/08/17 11:15 CK-MB (CK-2) 1.2 ng/mL (0.6-6.3) 01/08/17 11:15 Troponin I 0.01 ng/mL (<0.04) 01/08/17 11:15 C-Reactive Protein 49.59 mg/L (< 5.00) H 01/08/17 11:15 B-Natriuretic Peptide 68 pg/mL (-100) 01/08/17 11:15 Total Protein 6.9 g/dL (6.4-8.9) 01/08/17 11:15 Albumin 3.5 g/dL (3.2-5.2) 01/08/17 11:15 Globulin 3.4 g/dL (2-4) 01/08/17 11:15 Albumin/Globulin Ratio 1.0 (1-3) 01/08/17 11:15 Triglycerides 184 mg/dL 01/09/17 05:20 Cholesterol 183 mg/dL 01/09/17 05:20 LDL Cholesterol 119 mg/dL 01/09/17 05:20 HDL Cholesterol 27.5 mg/dL 01/09/17 05:20 Lipase 26 U/L (11.0-82.0) 01/08/17 11:15 Procalcitonin 0.2 ng/mL (<0.6) 01/08/17 11:15 TSH 0.66 mcIU/mL (0.34-5.60) 01/08/17 11:15 Urine Color Yellow 01/08/17 17:13 Urine Appearance Clear 01/08/17 17:13 Urine pH 5.0 (5-9) 01/08/17 17:13 Ur Specific [place] 1.010 (1.010-1.030) 01/08/17 17:13 Urine Protein Negative (Negative) 01/08/17 17:13 Urine Ketones Negative (Negative) 01/08/17 17:13 Urine Blood Negative (Negative) 01/08/17 17:13 Urine Nitrate Negative (Negative) 01/08/17 17:13 Urine Bilirubin Negative (Negative) 01/08/17 17:13 Urine Urobilinogen Negative (Negative) 01/08/17 17:13 Ur Leukocyte Esterase Trace (Negative) H 01/08/17 17:13 Urine WBC (Auto) Trace(0-5/hpf) (Absent) 01/08/17 17:13 Urine RBC (Auto) Absent (Absent) 01/08/17 17:13 Ur Squamous Epith Cells Present (Absent) H 01/08/17 17:13 Urine Bacteria 1+ (Absent) H 01/08/17 17:13 Hyaline Casts Present (Absent) H 01/08/17 17:13 Urine Glucose Negative (Negative) 01/08/17 17:13 Diagnostics: Brain CT: negative EKG: Prolonged MT interval, NSR CXR: negative Transthoracic echo: Some basal septal hypertrophy. EF: 60-65%. some left ventricular diastolic dysfunction. Negative bubble study. Brain MRI: negative Carotid doppler: negative Assessment/Plan: This is a 76 yo white female with PMH of HTN, DM, CKD, Hx of intermittent hand numbness and neuropathy, admitted on 01/08 with dizziness, fatigue, and near syncope after walking upstairs 1) Near syncope: Etiology is still unclear, could be multifactorial. It seems that syncopal episode is secondary to hypovolemia given patient's excess diarrhea and elevated creatinine and lactic acid on admission. Rule out of stroke and cardiac etiology with negative MRI and echo. Repeat of CXR shows no pneumonia. Blood cultures and lyme serology still pending. Concern for possible heart block on telemetry monitoring overnight that showed missed beats with possible 1st degree/2nd degree type one. Also demonstrated episode of tachycardia into the 150s overnight. Vitals remain WNL today. Cont Ceftriaxone. 2) Right sided weakness: Could be an increased manifestation of previous weakness/ neuropathy in the hand due to illness. Stroke r/o PT and OT consults. 3) CRYSTAL: Continue with IVF. Improved BUN and Creatinine. 4) HTN: Continue to hold atenolol/chlorthalidone and lisinopril/ HCTZ. BP WNL. 5) DM SS Humalog. Hold Januvia Hemoglobin A1C 6.4%
--- NOTE | 2017-01-09 12:36 | RAD ---
HISTORY: Stroke, syncope COMPARISONS: Head CT dated January 08, 2017 TECHNIQUE: The following sequences were obtained of the head: Sagittal T1-weighted images, axial T2-weighted images, axial FLAIR images, axial susceptibility weighted images, axial T1-weighted images. Additionally, axial diffusion-weighted images were obtained with calculated apparent diffusion coefficients. FINDINGS: HEMORRHAGE/INFARCT: There is no hemorrhage or acute infarct. MASSES/SHIFT: There is no mass or shift. EXTRA-AXIAL SPACES/MENINGES: There are no extra-axial fluid collections. SULCI AND VENTRICLES: The sulci and ventricles are normal in size and position for the patient's stated age. CEREBRUM: There are multiple scattered small foci of elevated T2/FLAIR signal within the periventricular and subcortical white matter. BRAINSTEM: There is minimally elevated T2/FLAIR signal within the pontine white matter CEREBELLUM: There are no focal parenchymal abnormalities. The cerebellar tonsils are normal in size and position. SELLA: The sella is normal. PINEAL: The pineal region is clear. CP ANGLE/TEMPORAL BONES: The labyrinthine structures are grossly normal. VESSELS: Normal flow-voids are noted within the visualized vertebral vasculature. DIFFUSION ABNORMALITIES: There are no diffusion abnormalities. PARANASAL SINUSES/MASTOIDS: The paranasal sinuses are clear. ORBITS: The orbits are unremarkable. BONES AND SOFT TISSUE: No bone or soft tissue abnormalities are noted. OTHER: None IMPRESSION: 1. WHITE MATTER CHANGES, NONSPECIFIC BUT SUGGESTIVE OF CHRONIC SMALL VESSEL ISCHEMIA. 2. NO RESTRICTED DIFFUSION TO SUGGEST ACUTE INFARCT.
--- NOTE | 2017-01-09 12:38 | RAD ---
INDICATION: Short of breath. Fever. COMPARISON: January 08, 2017 TECHNIQUE: PA and lateral dual-energy views were obtained. FINDINGS: Bones/Soft Tissues: There are no acute bony findings. Cardiomediastinal: The cardiomediastinal silhouette is normal. Lungs: There are no infiltrates. Pleura: There are no pleural effusions. Other: None IMPRESSION: NO ACTIVE DISEASE
--- NOTE | 2017-01-09 13:52 | ECHO ---
Patient: MAIA STEWARD [facility] Rec#: [id number] : 1940 Date: 01/09/2017 Age: 76y Height: 157.48 cm / 62.0 in Weight: 68.49 kg / 151.0 lbs Sex: F BSA: 1.7 Room#: 439 Admit Date#: 01/08/2017 Type: Inpatient Referring: Zakia Rodriguez Reading: Tao Tran MD Crisis Counselor: Elisabeth OharaANIBAL CC: Alen GRAY,Sherwin Transthoracic Echocardiogram Indication: Right sided weakness BP: 144/57 HR: 88 Rhythm: NSR with PVCs Findings History: DM, HTN. Technical Comments: The study quality is fair. The study is technically limited due to poor parasternal windows. The study is technically limited due to patient body habitus. Completed at 1030. Left Ventricle: The left ventricular chamber size is normal. Mild concentric left ventricular hypertrophy is observed. There is increased basal septal hypertrophy noted without evidence of an increased gradient across the left ventricular outflow tract. c/w a sigmoid septum. Global left ventricular wall motion and contractility are within normal limits. There is normal left ventricular systolic function. The estimated ejection fraction is 60-65%. Abnormal left ventricular diastolic function is observed. There is an E to A reversal in the mitral valve flow pattern suggestive of diastolic dysfunction. Left Atrium: The left atrium is slightly dilated. Right Ventricle: Moderator Band present. The right ventricular cavity size is normal. The right ventricular global systolic function is normal. Right Atrium: The right atrial cavity size is normal. There is no evidence of patent foramen ovale shunting. A patent foramen ovale is not demonstrated with color Doppler and agitated contrast. Aortic Valve: The aortic valve structure is not well visualized. Mild aortic leaflet calcification is visualized. Systolic excursion of the aortic valve cusps is reduced. There is a trace of aortic regurgitation. There is borderline aortic stenosis present. The highest aortic valve velocity was obtained with the standard probe from the A5C view. Mitral Valve: There is mitral annular calcification. The mitral valve leaflets are moderately thickened.and the posterior leaflet is restricted due to annualar calcium. There is a trace of mitral regurgitation. There is mild mitral stenosis. Tricuspid Valve: The tricuspid valve leaflets are normal. There is trace tricuspid regurgitation. There is evidence that pulmonary hypertension may be underestimated. There is no tricuspid stenosis. Pulmonic Valve: The pulmonic valve appears normal. There is a trace pulmonic regurgitation. There is no pulmonic stenosis. Pericardium: There is no significant pericardial effusion. A pericardial fat pad is visualized. Aorta: There is no dilatation of the ascending aorta. The aortic arch is not well visualized. There is no dilation of the aortic root. Pulmonary Artery: The main pulmonary artery is not well visualized. Venous: The inferior vena cava appears normal in size. There is an approximate 50% respiratory change in the inferior vena cava dimension. Contrast: Normal saline was used as contrast for the bubble study. Images 59 and 60. Intravenous contrast was used to help determine presence of intracardiac shunting. Summary: There was not any prior study for comparison. Conclusions The study is technically limited due to poor parasternal windows. Mild concentric left ventricular hypertrophy is observed. There is increased basal septal hypertrophy noted without evidence of an increased gradient across the left ventricular outflow tract c/w a sigmoid septum. Global left ventricular wall motion and contractility are within normal limits. There is increased basal septal hypertrophy noted without evidence of an increased gradient across the left ventricular outflow tract. c/w a sigmoid septum. The estimated ejection fraction is 60-65%. Abnormal left ventricular diastolic function is observed. The left atrium is slightly dilated. There is no evidence of patent foramen ovale shunting. A patent foramen ovale is not demonstrated with color Doppler and agitated contrast. There is trace tricuspid regurgitation. Measurements Name Value Normal Range RVIDd (AP) 2D 2.7 cm (0.9 - 2.6) RVDdMajor (2D) 3.1 cm (2.2 - 4.4) RAd ISD 4CH 4.2 cm (3.4 - 4.9) RA (A4C)W 3.7 cm (2.9 - 4.6) IVSd (2D) 1.1 cm (0.6 - 1) LVPWd (2D) 1.1 cm (0.6 - 1) LVIDd (2D) 3.6 cm (3.6 - 5.4) LVIDs (2D) 2.7 cm - LV FS (2D) 25 % (25 - 45) Aortic Annulus 1.9 cm (1.4 - 2.6) Ao root diameter (2D) 3 cm (2.1 - 3.5) Ascending Ao 3.1 cm (2.1 - 3.4) LA dimension (AP) 2D 3.5 cm (2.3 - 3.8) LAd ISD 4CH 4.8 cm (2.9 - 5.3) LA ISD 4CH W 4.5 cm (2.5 - 4.5) Name Value Normal Range LA ESV SP 4CH (A/L) 59 ml - LA ESV SP 2CH (A/L) 45 ml - LA ESV BP (A/L) 54 ml - LA ESV BP (A/L) index 32.05 ml/m2 - LA ESV SP 4CH (MOD) 53 ml - LA ESV SP 2CH (MOD) 42 ml - Name Value Normal Range MV E-wave Vmax 1 m/sec - MV deceleration time 275 msec - MV A-wave Vmax 1.67 m/sec - MV E:A ratio 0.6 ratio - LV septal e' Vmax 0.08 m/sec - LV lateral e' Vmax 0.07 m/sec - LV E:e' septal ratio 12.5 ratio - LV E:e' lateral ratio 14.3 ratio - Name Value Normal Range AV Vmax 2 m/sec - AV VTI 43.7 cm - AV peak gradient 16.03 mmHg - AV mean gradient 9.69 mmHg - LVOT diameter 2 cm - LVOT Vmax 1.39 m/sec - LVOT VTI 33.01 cm - LVOT peak gradient 7.82 mmHg - LVOT mean gradient 5.99 mmHg - BERNARDINO (continuity Vmax) 2.2 cm2 - BERNARDINO (continuity VTI) 2.4 cm2 - Name Value Normal Range MV Vmax 1.86 m/sec - MV VTI 32.63 cm - MV peak gradient 13.79 mmHg - MV mean gradient 4.42 mmHg - MV PHT 102.52 msec - Name Value Normal Range TR Vmax 1.5 m/sec - TR peak gradient 9 mmHg - RAP 8 mmHg - RVSP 17 mmHg - IVC diameter 1.9 cm - Name Value Normal Range PV Vmax 1.05 m/sec - PV peak gradient 4.43 mmHg -
--- NOTE | 2017-01-09 14:00 | RAD ---
INDICATION: Possible CVA COMPARISON: MRI January 09, 2017 TECHNIQUE: Transverse and longitudinal scans of the carotid and vertebral arteries were performed with nuñez scale, color Doppler, and spectral Doppler imaging. Stenosis criteria is based on flow velocities that correlate with visual internal carotid artery diameter (NASCET criteria) FINDINGS: Right carotid: There is moderate calcific plaque involving the bifurcation. There is no spectral broadening. The peak systolic velocity of the internal carotid artery is 153 cm/s and the peak diastolic velocity 31 cm/s. The ICA/CCA ratio is calculated at 1.4. This corresponds to a less than 50% diameter stenosis. Left carotid: There is mild calcific plaque involving the bifurcation. There is no spectral broadening. The peak systolic velocity of the internal carotid artery is 97 cm/s and the peak diastolic velocity 30 cm/s. The ICA/CCA ratio is calculated at 1.0. This corresponds to a less than 50% diameter stenosis. Right vertebral: Right vertebral waveforms are normal and the flow is antegrade. Left vertebral: Left vertebral waveforms are normal and the flow is antegrade. IMPRESSION: NO EVIDENCE OF A HEMODYNAMICALLY SIGNIFICANT STENOSIS CPT II Codes: 3100F [facility]
--- NOTE | 2017-01-09 15:10 | PN ---
Subjective Date of Service: 01/09/17 Interval History: This is a 76 yo female with DM, HTN and CKD who presented after a near syncope episode with c/o R sided weakness, chills and SOB. Initial labs and imaging were remarkable for a picture of dehydration and elevated CRP without obvious source of infection. Patient was evaluated by neurology regarding concern for possible CVA given c/o R sided weakness. She developed a fever overnight with Tmax 101.3 and was started on Ceftriaxone. She also reports recent diarrhea that corresponds with initiation of Fosamax ~1 month ago, but it seems to have been worse over the last week. This am, she feels slightly better, less dizzy but still quite weak. Some RUFFIN but no cough, no abd pain. One episode of diarrhea this am but no n/v. Rather poor appetite. Objective Active Medications: Aspirin (Aspirin Low Dose Tab*) 81 mg PO DAILY [facility] Last Admin: 01/09/17 08:38 Dose: 81 mg Cholecalciferol (Vitamin D Tab*) 5,000 units PO DAILY [facility] Last Admin: 01/09/17 08:38 Dose: 5,000 units Dextrose (D50w Syringe 50 Ml*) 12.5 gm IV PUSH .FOR FS < 60 - SS PRN PRN Reason: FS < 60 Heparin Sodium (Porcine) (Heparin Vial(*)) 5,000 units SUBCUT Q8HR [facility] Last Admin: 01/09/17 14:25 Dose: 5,000 units Sodium Chloride (Ns 0.9% 1000 Ml*) 1,000 mls @ 100 mls/hr IV PER RATE [facility] Last Admin: 01/09/17 07:54 Dose: 100 mls/hr Ceftriaxone Sodium 1,000 mg/ (Sodium Chloride) 50 mls @ 200 mls/hr IVPB Q24H [facility] Last Admin: 01/08/17 20:29 Dose: 200 mls/hr Insulin Human Lispro (Humalog*) 0 units SUBCUT AC [facility] PRN Reason: Protocol Last Admin: 01/09/17 12:37 Dose: Not Given Meclizine HCl (Antivert Tab*) 25 mg PO Q8HR [facility] Last Admin: 01/09/17 14:25 Dose: 25 mg Non-Formulary Medication (Magnesium [Magnesium]) 500 mg PO DAILY [facility] Last Admin: 01/09/17 08:39 Dose: Not Given Vital Signs: Temp Pulse Resp BP Pulse Ox 99.1 F 77 20 131/48 98 01/09/17 07:30 01/09/17 14:06 01/09/17 14:06 01/09/17 14:06 01/09/17 14:06 Appearance: Mildly ill appearing elderly female in NAD Respiratory: Symmetrical Chest Expansion and Respiratory Effort, Clear to Auscultation Cardiovascular: NL Sounds; No Murmurs; No JVD, RRR Abdominal: NL Sounds; No Tenderness; No Distention Extremities: No Edema Skin: No Rash or Ulcers Neurological: Alert and Oriented x 3 Result Diagrams: 01/09/17 05:20 01/09/17 05:20 Additional Lab and Data: Laboratory Tests 01/08/17 11:15 C-Reactive Protein 49.59 H EKG Data: CT brain - chronic white matter changes, no acute changes MRI brain - No acute infarct, chronic small vessel ischemic changes Carotid US - no stenosis Echo - EF 60-65%, diastolic dysfunction, no valvular dz or PFO EKG - sinus with 1st deg block Tele - sinus with 1st deg block, occasional missed beat Assess/Plan/Problems-Billing Assessment: This is a 76 yo female with DM, HTN and stage III CKD who presented with near syncope, R sided weakness, chills and SOB. - Patient Problems (1) Febrile illness Comment: Unspecified source, possible Lyme Patient has vague neurologic symptoms, diarrhea, weakness, fever and new 1st deg block on EKG, she has been started on Ceftriaxone when fever started last night Blood cultures are pending CXR clear, UA unremarkable Cont current abx while while pending studies return (2) Right sided weakness Comment: No acute infarct on MRI Her R sided weakness likely represents an exacerbation of a chronic problem due to an acute illness, which includes some chronic numbness of the R hand and R knee pain Appreciate neurology consultation (3) Acute on chronic renal insufficiency Comment: Secondary to hypovolemia related to GI losses Stage III at baseline Improving to near baseline with IV fluids (4) Electrolyte abnormality Comment: Hyponatremia and hypokalemia, now resolved likely related to GI loss and diuretic use (5) Diabetes (6) HTN (hypertension) Comment: Normotensive Antihypertensives currently being held (7) Full code status (8) DVT prophylaxis Comment: SQ heparin Status and Disposition: Transition to inpatient. Anticipate additional 1-2d LOS
[2017-01-09] MEDS ORDERED: Aspirin Low Dose CHEW TAB* 81 MG PO ONE (15:36)
--- NOTE | 2017-01-09 17:53 | PN ---
PROGRESS NOTE: DATE OF VISIT: 01/09/17 HISTORY OF PRESENT ILLNESS: Ana Cristina Culp was admitted last night with weakness in the setting of history of diabetes, hypertension, chronic renal disease, and arthritis, and remote right hand trauma. She denies any new symptoms overnight. She was up with a walker today and felt a little better. She did have a fever during the middle of the night to 101.3. MEDICATIONS: Medications were reviewed and include: 1. Aspirin 81 mg p.o. q. day. 2. Ceftriaxone 1 g IV q.24 hours. 3. Vitamin D 5000 units p.o. q. day. 4. Heparin 5000 units subcu q.8 hours. 5. Insulin lispro per SEP. 6. Antivert 25 mg p.o. q.8 hours. 7. Magnesium 500 mg p.o. q. day. PHYSICAL EXAMINATION: Today, her most recent vitals include a temperature of 99.1, heart rate of 79, respiratory rate 20, saturation 98%, and blood pressure 131/40. She had a regular cardiac rhythm. Her lungs were clear to auscultation. She was awake, alert, articulate. She had full extraocular movements with some saccadic intrusions. Her facial expression was symmetric. There was no dysarthria. There was no pronator drift. She had give way weakness in her right upper extremity, admits to some pain in the joints in that arm. She was able to find her nose with her eyes closed. In her upper extremities and her lower extremities, she gave good strength. On the left lower extremity and the right lower extremity, again give way weakness proximally was noted, with full strength distally in the setting of knee pain on the right hand side and warmth noted around the knee with no clear redness. No rash was noted. DIAGNOSTIC STUDIES/LAB DATA: Includes echocardiogram which showed no hemodynamically significant stenosis. There was moderate calcific plaque, carotid bifurcation, moderate on the right and mild on the left. Transthoracic echo was technically limited, did show mild LVH and changes consistent with a "sigmoid septum." Ejection fraction was 60% to 65% with no PFO. Please see report for further details. Her urinalysis had shown trace esterase, 1+ bacteria, and culture has been ordered. Lyme testing has been ordered. Her white count today was 7.3 with 10% monocytes. Chest x-ray showed no evidence of infiltrate. IMPRESSION: Ana Cristina Culp is a 76-year-old woman with general decline in the setting of remote right hand trauma and chronic intermittent numbness of the right hand as well as right knee arthritis requiring a cane at baseline to ambulate. Her MRI shows no evidence of stroke. There are chronic ischemic lesions and she is on aspirin. She has risk factors of diabetes and hypertension. It is important for her to follow closely with her primary care office for treatment of risk factors. Her fasting lipid profile today did show a total cholesterol of 183 with elevated LDL 119 and HDL 27.5 and triglycerides 184. A statin may wanted to be considered in outpatient therapy for prevention of stroke. I do suspect the infection has been the cause of her generalized decline in the setting of chronic right-sided dysfunction. She is being worked up by the hospitalist team, agree with physical therapy. Please call if further neurologic input is needed. TIME SPENT: Over half hour was spent in direct patient care. All questions were answered. [id number]/[facility] #: [id number] SHARMIN
[2017-01-09] MEDS: cefTRIAXone VIAL(*) 1,000 MG in NS 0.9% 50 ML* 50 ML IVPB SCH (20:04)
[2017-01-10] MEDS: Meclizine TAB* 12.5 MG PO SCH ×2 (05:39→13:46)
[2017-01-10] MEDS: Heparin VIAL(*) 5000 UNITS/ML VIAL (FIVE THOUSAND) SUBCUT SCH ×2 (05:40→13:47)
[2017-01-10 05:51] LABS: Hematocrit 30 % (35-47); Mean Corpuscular HGB Conc 34 g/dl (31-36); Mean Corpuscular Hemoglobin 32 pg (27-31); Mean Corpuscular Volume 95 fL (80-97); Mean Platelet Volume 8 um3 (7.4-10.4); Red Blood Count 3.15 10^6/ul (4.0-5.4); Red Cell Distribution Width 13 % (10.5-15); White Blood Count 4.9 10^3/ul (3.5-10.8)
[2017-01-10 06:03] LABS: BUN/Creatinine Ratio 14.1 (8-20); Calcium 8.8 mg/dL (8.6-10.3); EGFR African American 39.4 (>60); EGFR Non-African American 30.7 (>60); Potassium 4.1 mmol/L (3.5-5.0)
[2017-01-10] MEDS ORDERED: Acetaminophen TAB* 325 MG PO PRN (06:10)
[2017-01-10] MEDS: Insulin LISPRO* 1 UNITS UNIT SUBCUT SCH ×2 (08:09→12:13)
[2017-01-10] MEDS: Aspirin Low Dose CHEW TAB* 81 MG PO SCH (08:18)
[2017-01-10] MEDS: Cholecalciferol TAB* 1000 UNITS PO SCH (08:18)
[2017-01-10] MEDS: MAGNESIUM 500 MG PO SCH (08:20)
[2017-01-10 12:13] VITALS: BP 130/44
--- NOTE | 2017-01-11 00:54 | DS ---
CC: Sherwin Lowry DO* DISCHARGE SUMMARY: DATE OF ADMISSION: 01/08/17 DATE OF DISCHARGE: 01/10/17 PRIMARY CARE PROVIDER: Sherwin Lowry DO PRIMARY DIAGNOSES: Weakness and dehydration. SECONDARY DIAGNOSES: Include: 1. Acute kidney failure. 2. Compensated diastolic heart dysfunction. 3. Type 2 diabetes. 4. Hypertension. MEDICATIONS ON DISCHARGE: Include: 1. Januvia 50 mg p.o. daily. 2. Magnesium 500 mg daily. 3. Fosamax 70 mg weekly. 4. Cholecalciferol 5000 units daily. 5. Lisinopril 10 mg daily. 6. Atenolol 25 mg daily. 7. Aspirin 81 mg daily. Please note the discontinuation of chlorthalidone as well as hydrochlorothiazide as well as the decrease in dose of atenolol from 50 to 25 mg. PERTINENT MICROBIOLOGY: Negative blood and urine cultures. PERTINENT LABORATORY DATA: Creatinine on presentation 2.0, on discharge 1.6; BUN on presentation 31, on discharge 23; procalcitonin 0.2. On presentation, hemoglobin A1c 6.4%. Brain MRI, white matter changes. Nonspecific, but suggestive of chronic small vessel ischemia. No restricted diffusion to suggest acute infarct. Carotid Doppler study. Impression: No evidence of hemodynamically significant stenosis. Transthoracic echocardiogram. Impression: Mild concentric left ventricular hypertrophy. Increased basal septal hypertrophy without evidence of increased gradient across the left ventricular outflow tract. Global left ventricular wall motion and contractility are within normal limits. Estimated LVEF 60% to 65%. Abnormal left ventricular diastolic function. Left atrium is slightly dilated. There is no evidence of patent foramen ovale. Trace TR. HISTORY OF PRESENT ILLNESS AND HOSPITAL COURSE: This is a 76-year-old female with past medical history as outlined in the history of present illness, on the day of admission presented to the hospital feeling dizzy as if she was going to pass out. During the course of the hospital stay, she had a fever to 101.3 for which she was started on ceftriaxone. Chest x-ray did not indicate any pneumonia. Urine and blood cultures were negative. She had no leukocytosis. She remained afebrile and ceftriaxone was discontinued. Of note, the patient had worsening chronic kidney disease potentially in the setting of decreased poor intake at home in conjunction with recent heat as well as one month of diarrhea in the setting of suspected Fosamax intolerance as well as on dual diuretics of chlorthalidone and hydrochlorothiazide. The patient's symptoms improved with administration of crystalloid replacement. Hydrochlorothiazide and chlorthalidone were discontinued. Extensive counseling regarding adequate fluid hydration while at home especially while outside and working in the barn were discussed with the patient and her family. Additionally, the patient was counseled that she should use a walker at all times. 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 The patient's family plans on providing more adequate supervision while the patient is outside in the barn working with the horses. At followup, please: 1. Evaluate for blood pressure and heart rate control on reduced doses of antihypertensives. 2. Please evaluate for continued adequate fluid intake. 3. Evaluate for resolution of diarrhea. 4. No other specific labs or vitals that need followup. Reasons to return to the hospital included, but not limited to recurrent or worsening of symptoms, chest pain, shortness of breath, nausea or vomiting, light headedness, loss of consciousness, near loss of consciousness, fever, chills or night sweats, diarrhea, inability to obtain or tolerate medications discussed with the patient, she acknowledged understanding. TIME SPENT: Greater than 45 minutes were spent on the discharge of this patient , greater than half was spent [id number] with the patient and her family. [id number]/[facility] #: [id number] MTDD
== END 2017-01-10 16:19 | disposition home or self-care (01) | DRG 641 ==
LOC: ED 10:48 → MEDTELE 13:56 → OBSVTOIN 01-09 10:52
PROVIDERS: ADMIT Internal Medicine; ATTEND Internal Medicine
DX: E86.0 Dehydration (principal); N17.9 Acute kidney failure, unspecified; E87.2 Acidosis; E11.22 Type 2 diabetes mellitus with diabetic chronic kidney disease; R53.1 Weakness; E87.1 Hypo-osmolality and hyponatremia; L29.8 Other pruritus; Z88.0 Allergy status to penicillin; Z88.7 Allergy status to serum and vaccine; Z91.038 Other insect allergy status; Z90.710 Acquired absence of both cervix and uterus; R29.700 NIHSS score 0; J34.89 Other specified disorders of nose and nasal sinuses; E87.6 Hypokalemia; M19.041 Primary osteoarthritis, right hand; I12.9 Hypertensive chronic kidney disease with stage 1 through stage 4 chronic kidney disease, or unspecified chronic kidney disease; N18.9 Chronic kidney disease, unspecified; M54.30 Sciatica, unspecified side; Z83.6 Family history of other diseases of the respiratory system; E11.40 Type 2 diabetes mellitus with diabetic neuropathy, unspecified; M17.11 Unilateral primary osteoarthritis, right knee; R50.9 Fever, unspecified; Z79.82 Long term (current) use of aspirin; I07.1 Rheumatic tricuspid insufficiency
CPT/HCPCS: 36415; 70450; 70551; 71010; 71020; 80048; 80053; 80061; 81003; 81015; 82550; 82553; 83036; 83605; 83690; 83735; 83880; 84145; 84443; 84484; 85025; 85610; 85730; 86140; 86618; 87040; 87086; 93005; 93306; 93880; 97530; A9270-GY; G0378; G8978-GP-CI; G8979-GP-CH; G8980-GP-CI; J0696; J1644

== ENCOUNTER 2017-12-23 00:03 | Observation (INO) | payer MEDICARE ==
[2017-12-23 01:17] LABS: ABS Basophils 0.1 10^3/ul (0-0.2); ABS Eosinophils 0.1 10^3/ul (0-0.6); ABS Lymphocytes 1.6 10^3/ul (1.0-4.8); ABS Monocytes 0.6 10^3/ul (0-0.8); ABS Nucleated RBC 0 10^3/ul; Eosinophil % 0.7 % (0-6); Hematocrit 34 % (35-47); Hemoglobin 11.5 g/dl (12.0-16.0); Lymphocyte % 22.5 % (25-47); Mean Corpuscular HGB Conc 34 g/dl (31-36); Mean Corpuscular Hemoglobin 31 pg (27-31); Mean Corpuscular Volume 92 fL (80-97); Mean Platelet Volume 7.5 um3 (7.4-10.4); Nucleated Red Blood Cells % 0; Platelet Count 245 10^3/ul (150-450); Red Blood Count 3.72 10^6/ul (4.00-5.40); Red Cell Distribution Width 16 % (10.5-15); White Blood Count 7.3 10^3/ul (3.5-10.8)
[2017-12-23 01:23] LABS: INR 0.97 (0.77-1.02)
[2017-12-23 01:34] LABS: EGFR Non-African American 22.5 (>60)
[2017-12-23 03:28] LABS: Urine Appearance Clear; Urine Blood Negative (Negative); Urine Color Yellow; Urine Ketones Negative (Negative); Urine Protein Negative (Negative); Urine Red Blood Cell Trace(0-2/hpf) (Absent); Urine Specific Gravity 1.016 (1.010-1.030); Urine Urobilinogen Negative (Negative); Urine White Blood Cell 1+(6-10/hpf) (Absent)
--- NOTE | 2017-12-23 04:11 | ED ---
Wilson Jacobson Gabriel, scribed for Fredy Owens MD on 12/23/17 at 0042 . Syncope/Near Syncope - HPI Summary HPI Summary: This patient is a 77 year old F [facility] accompanied by her family s/p syncopal episode that occurred earlier tonight. Pt states she was sitting at the table and began to feel like she was going to pass out. It was witnessed by her daughter in law and the pt was unresponsive for a couple minutes which was followed by an episode of confusion and trouble speaking. The patient rates the pain 0/10 in severity. Patient reports pallor, n/v, and weakness. Patient denies shaking, dysuria, GUARDADO, and numbness. Pt had not felt ill all day. She did have abnormally high blood glucose levels 260 after the episode. Pt states she has suffered brain damage due to low blood pressure last year that caused right sided weakness. Upon exam pt has already had 1 liter of fluid and states it made her feel better. - History Of Current Complaint Chief Complaint: EDSyncope Time Seen by Provider: 12/23/17 00:28 Hx Obtained From: Patient Onset/Duration: Resolved Timing: Intermittent Episode Lasting - a couple minutes Context: Witnessed, Loss Of Consciousness Activity At Onset: At Rest Associated Head Trauma: No Alleviating Factor(s): Spontaneous Resolution Associated Signs And Symptoms: Vomiting, Other - weakness - Allergies/Home Medications Allergies/Adverse Reactions: Allergies Allergy/AdvReac Type Severity Reaction Status Date / Time Penicillins Allergy Rash Verified 12/23/17 00:53 Tetanus Vaccines and Toxoid Allergy Rash Verified 12/23/17 00:53 SPIDER BITES Allergy Severe "THEY Uncoded 12/23/17 00:53 DON'T HEAL" PMH/Surg Hx/FS Hx/Imm Hx Endocrine/Hematology History: Reports: Hx Diabetes - type 2 - controlled w/ diet Denies: Hx Anticoagulant Therapy Cardiovascular History: Reports: Hx Hypertension - on meds - pt reports labile at times, Hx Syncope - 01/08/17 admission, Other Cardiovascular Problems/ Disorders - 1st degree AV block Denies: Hx Angina, Hx Cardiac Arrest, Hx Coronary Artery Disease, Hx Pacemaker/ICD Respiratory History: Denies: Hx Asthma History: Reports: Hx Chronic Renal Failure Denies: Hx Renal Disease Musculoskeletal History: Reports: Hx Osteoporosis Sensory History: Reports: Hx Contacts or Glasses Denies: Hx Hearing Aid Opthamlomology History: Reports: Hx Contacts or Glasses Neurological History: Reports: 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, Hx Headaches Denies: Hx Spinal Cord Injury, Hx Transient Ischemic Attacks (TIA) Psychiatric History: Denies: Hx Anxiety, Hx Depression, Hx Panic Disorder - Surgical History Surgery Procedure, Year, and Place: HYSTERECTOMY 1996 Infectious Disease History: No Infectious Disease History: Denies: Traveled Outside the [place] in Last 30 Days - Family History Known Family History: Positive: Unknown - Adopted - Social History Lives: With Family Alcohol Use: None Hx Substance Use: No Substance Use Type: Reports: None Hx Tobacco Use: No Smoking Status (MU): Never Smoked Tobacco Review of Systems Constitutional: Negative - shaking Positive: Other - pallor Positive: Vomiting, Nausea Negative: dysuria Neurological: Other - trouble speaking and confused Positive: Weakness, Syncope - with LOC . Negative: Headache, Numbness All Other Systems Reviewed And Are Negative: Yes Physical Exam - Summary Physical Exam Summary: Appearance: Well appearing, no pain distress Skin: warm, dry, reflects adequate perfusion Head/face: normal Eyes: EOMI, ANGELIA ENT: mucus membranes moist Neck: supple, non-tender Respiratory: CTA, breath sounds present Cardiovascular: RRR, pulses symmetrical Abdomen: non-tender, soft Bowel Sounds: present Musculoskeletal: normal, strength/ROM intact Neuro: sensory motor intact, A&Ox3, generalized weakness, no focality, cranial nerves are intact Triage Information Reviewed: Yes Vital Signs On Initial Exam: Initial Vitals Pulse Resp BP Pulse Ox 62 20 159/65 95 12/23/17 00:10 12/23/17 00:10 12/23/17 00:10 12/23/17 00:10 Vital Signs Reviewed: Yes Diagnostics - Vital Signs Vital Signs Temp Pulse Resp BP Pulse Ox 12/23/17 00:11 97 F 62 14 159/65 95 12/23/17 00:10 62 20 159/65 95 - Laboratory Lab Results: Lab Results 12/23/17 12/23/17 12/23/17 Range/Units 01:06 01:06 01:06 WBC 7.3 (3.5-10.8) 10^3/ul RBC 3.72 L (4.00-5.40) 10^6/ul Hgb 11.5 L (12.0-16.0) g/dl Hct 34 L (35-47) % MCV 92 (80-97) fL MCH 31 (27-31) pg MCHC 34 (31-36) g/dl RDW 16 H (10.5-15) % Plt Count 245 (150-450) 10^3/ul MPV 7.5 (7.4-10.4) um3 Neut % (Auto) 67.9 (38-83) % Lymph % (Auto) 22.5 L (25-47) % Green % (Auto) 7.7 H (0-7) % Eos % (Auto) 0.7 (0-6) % Baso % (Auto) 1.2 (0-2) % Absolute Neuts (auto) 5.0 (1.5-7.7) 10^3/ul Absolute Lymphs (auto) 1.6 (1.0-4.8) 10^3/ul Absolute Monos (auto) 0.6 (0-0.8) 10^3/ul Absolute Eos (auto) 0.1 (0-0.6) 10^3/ul Absolute Basos (auto) 0.1 (0-0.2) 10^3/ul Absolute Nucleated RBC 0 10^3/ul Nucleated RBC % 0 INR (Anticoag Therapy) 0.97 (0.77-1.02) Sodium 137 (135-145) mmol/L Potassium 4.1 (3.5-5.0) mmol/L Chloride 103 (101-111) mmol/L Carbon Dioxide 25 (22-32) mmol/L Anion Gap 9 (2-11) mmol/L BUN 42 H (6-24) mg/dL Creatinine 2.13 H (0.51-0.95) mg/dL Est GFR ( Amer) 28.9 (>60) Est GFR (Non-Af Amer) 22.5 (>60) BUN/Creatinine Ratio 19.7 (8-20) Glucose 124 H (70-100) mg/dL Calcium 8.7 (8.6-10.3) mg/dL Total Bilirubin 0.20 (0.2-1.0) mg/dL AST 16 (13-39) U/L ALT 14 (7-52) U/L Alkaline Phosphatase 44 (34-104) U/L Troponin I 0.00 (<0.04) ng/mL Total Protein 6.4 (6.4-8.9) g/dL Albumin 3.6 (3.2-5.2) g/dL Globulin 2.8 (2-4) g/dL Albumin/Globulin Ratio 1.3 (1-3) TSH 3.77 (0.34-5.60) mcIU/mL Urine Color Urine Appearance Urine pH (5-9) Ur Specific [place] (1.010-1.030) Urine Protein (Negative) Urine Ketones (Negative) Urine Blood (Negative) Urine Nitrate (Negative) Urine Bilirubin (Negative) Urine Urobilinogen (Negative) Ur Leukocyte Esterase (Negative) Urine WBC (Auto) (Absent) Urine RBC (Auto) (Absent) Ur Squamous Epith Cells (Absent) Urine Bacteria (Absent) Hyaline Casts (Absent) Urine Glucose (Negative) 12/23/17 Range/Units 03:06 WBC (3.5-10.8) 10^3/ul RBC (4.00-5.40) 10^6/ul Hgb (12.0-16.0) g/dl Hct (35-47) % MCV (80-97) fL MCH (27-31) pg MCHC (31-36) g/dl RDW (10.5-15) % Plt Count (150-450) 10^3/ul MPV (7.4-10.4) um3 Neut % (Auto) (38-83) % Lymph % (Auto) (25-47) % Green % (Auto) (0-7) % Eos % (Auto) (0-6) % Baso % (Auto) (0-2) % Absolute Neuts (auto) (1.5-7.7) 10^3/ul Absolute Lymphs (auto) (1.0-4.8) 10^3/ul Absolute Monos (auto) (0-0.8) 10^3/ul Absolute Eos (auto) (0-0.6) 10^3/ul Absolute Basos (auto) (0-0.2) 10^3/ul Absolute Nucleated RBC 10^3/ul Nucleated RBC % INR (Anticoag Therapy) (0.77-1.02) Sodium (135-145) mmol/L Potassium (3.5-5.0) mmol/L Chloride (101-111) mmol/L Carbon Dioxide (22-32) mmol/L Anion Gap (2-11) mmol/L BUN (6-24) mg/dL Creatinine (0.51-0.95) mg/dL Est GFR ( Amer) (>60) Est GFR (Non-Af Amer) (>60) BUN/Creatinine Ratio (8-20) Glucose (70-100) mg/dL Calcium (8.6-10.3) mg/dL Total Bilirubin (0.2-1.0) mg/dL AST (13-39) U/L ALT (7-52) U/L Alkaline Phosphatase (34-104) U/L Troponin I (<0.04) ng/mL Total Protein (6.4-8.9) g/dL Albumin (3.2-5.2) g/dL Globulin (2-4) g/dL Albumin/Globulin Ratio (1-3) TSH (0.34-5.60) mcIU/mL Urine Color Yellow Urine Appearance Clear Urine pH 5.0 (5-9) Ur Specific [place] 1.016 (1.010-1.030) Urine Protein Negative (Negative) Urine Ketones Negative (Negative) Urine Blood Negative (Negative) Urine Nitrate Negative (Negative) Urine Bilirubin Negative (Negative) Urine Urobilinogen Negative (Negative) Ur Leukocyte Esterase 1+ A (Negative) Urine WBC (Auto) 1+(6-10/hpf) A (Absent) Urine RBC (Auto) Trace(0-2/hpf) (Absent) Ur Squamous Epith Cells Present A (Absent) Urine Bacteria Absent (Absent) Hyaline Casts Present A (Absent) Urine Glucose Negative (Negative) Result Diagrams: 12/23/17 01:06 12/23/17 01:06 Lab Statement: Any lab studies that have been ordered have been reviewed, and results considered in the medical decision making process. - Radiology CXR Radiology Interpretation Completed By: ED Physician - no acute findings. Pending official report. - CT CT Head CT Interpretation Completed By: Radiologist - no evidence of acute pathology. Dr. Owens has reviewed this report. - EKG 01:18 Cardiac Rate: NL EKG Rhythm: Sinus Rhythm - at [address] Segment: Non-Specific EKG Interpretation: first degree AV block, nml axis Course/Dx Course Of Treatment: Patient with a likely syncopal episode of unknown etiology. Does not seem to be consistent with seizure. Patient does have a history of same which left her with a residual right-sided weakness. This was felt not to be stroke. She is felt to be high risk and warrants further observation, treatment. As such, patient will be admitted by the hospitalist to the telemetry service. - Diagnoses Differential Diagnosis/HQI/PQRI: Positive: Hypoglycemia, Metabolic Reaction, Medication Reaction, Seizure, Transient Ischemic Attack, Vasovagal Episode Provider Diagnoses: Syncope - Physician Notifications Discussed Care of Patient With: Valerio Hernandez Time Discussed With Above Provider: 02:31 Instructed by Provider To: Admit As Inpatient Discharge - Sign-Out/Discharge Documenting (check all that apply): Discharge/Admit/Transfer - admitted - Discharge Plan Condition: Fair Disposition: ADMITTED TO [facility] Referrals: Sherwin Lowry DO [Primary Care Provider] - - Billing Disposition and Condition Condition: FAIR Disposition: Admitted to [facility] The documentation as recorded by the Wilson sandoval Gabriel accurately reflects the service I personally performed and the decisions made by , Fredy Owens MD.
[2017-12-23] MEDS ORDERED: Acetaminophen TAB* 325 MG PO PRN (07:49)
[2017-12-23] MEDS ORDERED: Ondansetron 40 MG VIAL* 2 MG/ML 20 ML VIAL IV PRN (07:49)
[2017-12-23] MEDS ORDERED: Morphine VIAL* 4 MG/ML VIAL (1 ml vial) IV PRN (07:49)
--- NOTE | 2017-12-23 07:52 | RAD ---
HISTORY: weak/syncope COMPARISONS: January 09, 2017 VIEWS: 4: Frontal dual-energy and lateral views of the chest. FINDINGS: CARDIOMEDIASTINAL SILHOUETTE: The cardiomediastinal silhouette is normal. LIONEL: The lionel are normal. PLEURA: The costophrenic angles are sharp. No pleural abnormalities are noted. LUNG PARENCHYMA: There is hyperinflation with flattening of the diaphragm and expansion of the AP diameter of the chest. ABDOMEN: The upper abdomen is clear. There is no subphrenic gas. BONES AND SOFT TISSUES: Degenerative changes are noted along the spine. OTHER: None. IMPRESSION: HYPERINFLATION, CONSISTENT WITH COPD. NO ACTIVE CARDIOPULMONARY DISEASE.
--- NOTE | 2017-12-23 07:58 | RAD ---
HISTORY: seizure vs syncope COMPARISONS: January 08, 2017 TECHNIQUE: Multiple contiguous axial CT scans were obtained of the head without intravenous contrast. FINDINGS: HEMORRHAGE/INFARCT: There is no hemorrhage or acute infarct. MASSES/SHIFT: There is no mass or shift. EXTRA-AXIAL SPACES: There are no extra-axial fluid collections. SULCI AND VENTRICLES: The sulci and ventricles are normal in size and position for the patient's stated age. CEREBRUM: There is mild hypoattenuation of the periventricular and subcortical white matter. BRAINSTEM: There are no focal parenchymal abnormalities. CEREBELLUM: There are no focal parenchymal abnormalities. VESSELS: The vessels are grossly normal. PARANASAL SINUSES: The paranasal sinuses are clear. ORBITS: The orbits are unremarkable. BONES AND SOFT TISSUE: No bone or soft tissue abnormalities are noted. OTHER: None IMPRESSION: NO ACUTE INTRACRANIAL PATHOLOGY.
[2017-12-23] MEDS: NS 0.9% 1000 ML* 1,000 ML IV SCH ×2 (08:31→16:22)
[2017-12-23] MEDS: Aspirin 81 mg CHEW TAB* 81 MG TAB.CHEW PO SCH (09:23)
[2017-12-23] MEDS: Atenolol TAB* 25 MG PO SCH (09:23)
[2017-12-23] MEDS: HYDROcodone/ACETAMIN 5-325 MG* 1 TAB PO PRN ×3 (09:30→21:32)
--- NOTE | 2017-12-23 10:56 | HP ---
CC: Dr. Lowry; Dr. Burgess * HISTORY AND PHYSICAL: DATE OF ADMISSION: 12/23/17 PRIMARY CARE PROVIDER: Dr. Lowry. CHIEF COMPLAINT: Nausea, vomiting, and near syncope. HISTORY OF PRESENT ILLNESS: Ana Cristina Culp is a 77-year-old female who stated that last evening she felt weak after eating dinner. She stated that she stared into space and although she was conscious, she felt like she was not all there and she was not able to talk. The family noted that something was wrong with her. Shortly thereafter, the patient started dry heaving and eventually vomited a large amount of gastric contents. She denied any abdominal pain afterwards. She did not have any diarrhea. She had not been febrile. She stated that they do not have air conditioning in their house and had been fairly warm due to high temperatures outside and they have been using fans at home. The patient was not confused after the episode and had no focal weakness. Please note the patient has history of chronic right-sided weakness. She stated that it happened approximately a year ago when she had a similar episode of near syncope after which she was weak in the right arm and right leg. Otherwise, her right leg had been weak for many years due to a horse accident. Her left leg had been evaluated by Dr. Burgess for possibility of replacement and she had exacerbated the problem this winter when she fell when she was cleaning the horse stalls in her residence. At this point, it appears that the patient had a likely vagal episode, but she is going to be placed on overnight observation. She also has acute kidney injury likely due to the above. PAST MEDICAL HISTORY: 1. Diabetes type 2. 2. Hypertension. 3. Chronic kidney disease stage 3. 4. History of chronic left hip pain. 5. History of chronic right-sided weakness. MEDICATIONS: Include: 1. Magnesium 500 mg daily. 2. Lisinopril 20 mg daily. 3. Atenolol 25 mg daily. 4. Aspirin 81 mg daily. 5. Amlodipine 5 mg daily. ALLERGIES: TETANUS and PENICILLIN. FAMILY HISTORY: Unknown. The patient is adopted. SOCIAL HISTORY: The patient denies any tobacco, alcohol, or drug use. She works at a horse farm and lives with her son, Magnus Culp, who is her healthcare proxy. REVIEW OF SYSTEMS: Please see history of present illness. All the remaining 12 systems were reviewed with the patient and were otherwise negative. PHYSICAL EXAMINATION GENERAL: The patient is a very pleasant 77-year-old female who is in no acute distress. Alert, awake, oriented x3. VITAL SIGNS: Blood pressure of 146/74, heart rate of 68 and regular, respiratory rate 17, oxygen saturation 95% on room air, temperature of 97.0. HEENT: Head: Atraumatic, normocephalic. Eyes: Pupils are equal, reactive to light and accommodation. Oropharynx clear. Mucosa moist. NECK: Supple. No JVD. No bruits bilaterally. RESPIRATORY: Clear to auscultation bilaterally. CARDIOVASCULAR: Regular rate and rhythm with no murmur. ABDOMEN: Soft, nontender. Bowel sounds are present in all 4 quadrants. EXTREMITIES: There is no edema. Pulses +2 bilaterally. No clubbing or cyanosis. NEUROLOGIC: Cranial nerves II through XII are grossly intact. Motor strength is mildly diminished in right handgrip at 4+/5 which is chronic. On bilateral lower extremities evaluation, her right leg is slightly bigger than the left. PSYCHIATRIC: Oriented x3 with no evidence of anxiety or depression. SKIN: No ecchymotic areas or rashes noted. DIAGNOSTIC STUDIES/LAB DATA: Shows white blood cell count of 7.3, hemoglobin 11.5, hematocrit of 34, and platelets of 245,000. Sodium was 137, potassium 4.1, chloride 103, carbon dioxide 25, BUN 42, creatinine 2.13. Liver function tests are unremarkable. Troponin of 0. TSH of 3.7. Urinalysis showed normal specific gravity with trace esterase, trace WBCs, and no bacteria. Brain CT, impression: "No acute intracranial pathology." The patient's portable chest x-ray, impression: "Consistent with COPD, no active cardiopulmonary disease." The patient's EKG showed normal sinus rhythm with heart rate of 60 beats per minute with prolonged CO interval. No specific ST changes in lateral leads. Comparing with an EKG from April 2017, the EKG is similar. ASSESSMENT AND PLAN: 1. Near syncope in the patient who was dry heaving and had subsequent nausea and vomiting. It appears that it was a vagal episode. Nevertheless, the patient is going to be placed on overnight observation for her near syncope. Neuro checks are going to be checked. I will also obtain transthoracic echocardiogram. 2. In regards to the patient's diabetes, it had been diet controlled in the past and that is what is going to be instituted. 3. For the patient's hypertension management, at this point I will hold the patient's lisinopril due to acute kidney injury and continue atenolol with hold parameters. Amlodipine is also going to be held. 4. Chronic kidney disease with acute kidney injury today. Appears to be due to mild dehydration. Once again, lisinopril is going to be held. The patient is going to be placed on intravenous fluids and we will check creatinine levels in the morning. 5. For DVT prophylaxis, the patient is going to be placed on heparin subcutaneously. 6. The patient's code status is full. Her surrogate is her son, Magnus. TIME SPENT: Approximately 65 minutes were spent on admission of this patient, more than half of that time was spent [id number] with the patient during the interview and physical exam. [id number]/[facility] #: [id number] MTDD
[2017-12-23] MEDS ORDERED: Dextrose 50% Syringe 50 ML* 25 GM/50 ML SYRINGE IV PUSH PRN (11:57)
[2017-12-23] MEDS: Heparin VIAL(*) 5000 UNITS/ML VIAL (FIVE THOUSAND) SUBCUT SCH ×2 (14:33→21:37)
[2017-12-23] MEDS: Insulin LISPRO* 1 UNITS UNIT SUBCUT SCH (17:22)
[2017-12-24] MEDS: NS 0.9% 1000 ML* 1,000 ML IV SCH ×2 (02:03→09:42)
[2017-12-24 04:44] LABS: ABS Basophils 0.1 10^3/ul (0-0.2); ABS Eosinophils 0.1 10^3/ul (0-0.6); ABS Lymphocytes 2.5 10^3/ul (1.0-4.8); ABS Monocytes 0.4 10^3/ul (0-0.8); ABS Neutrophils 2.1 10^3/ul (1.5-7.7); ABS Nucleated RBC 0 10^3/ul; Eosinophil % 1.8 % (0-6); Hematocrit 33 % (35-47); Hemoglobin 11.2 g/dl (12.0-16.0); Lymphocyte % 48.7 % (25-47); Mean Corpuscular HGB Conc 34 g/dl (31-36); Mean Corpuscular Hemoglobin 31 pg (27-31); Mean Corpuscular Volume 92 fL (80-97); Mean Platelet Volume 7.3 um3 (7.4-10.4); Nucleated Red Blood Cells % 0; Platelet Count 220 10^3/ul (150-450); Red Blood Count 3.59 10^6/ul (4.00-5.40); Red Cell Distribution Width 16 % (10.5-15); White Blood Count 5.2 10^3/ul (3.5-10.8)
[2017-12-24] MEDS: HYDROcodone/ACETAMIN 5-325 MG* 1 TAB PO PRN ×2 (05:09→12:35)
[2017-12-24] MEDS: Heparin VIAL(*) 5000 UNITS/ML VIAL (FIVE THOUSAND) SUBCUT SCH ×2 (05:10→13:09)
[2017-12-24 05:18] LABS: EGFR Non-African American 38.7 (>60)
[2017-12-24] MEDS: Insulin LISPRO* 1 UNITS UNIT SUBCUT SCH ×2 (07:31→11:41)
[2017-12-24] MEDS: Atenolol TAB* 25 MG PO SCH (08:52)
[2017-12-24] MEDS: Aspirin 81 mg CHEW TAB* 81 MG TAB.CHEW PO SCH (08:53)
[2017-12-24 12:06] VITALS: BP 152/55
--- NOTE | 2017-12-25 11:42 | DS ---
CC: Dr. Lowry * DISCHARGE SUMMARY: DATE OF ADMISSION: 12/23/17 DATE OF DISCHARGE: 12/24/17 PRIMARY CARE PROVIDER: Dr. Lowry. DISCHARGE DIAGNOSIS: Syncope, likely vagal in the patient who was dry heaving and vomiting before and after the syncope. SECONDARY DIAGNOSES: 1. History of diabetes type 2, currently treated with diet. 2. Hypertension. 3. Chronic kidney disease stage 3. 4. Chronic left hip pain. 5. History of chronic right-sided weakness. 6. The patient also had an episode of acute kidney injury during her current hospital stay, which resolved after rehydration. MEDICATIONS AT DISCHARGE: Unchanged from admission and include: 1. Magnesium 500 mg daily. 2. Lisinopril 20 mg daily. 3. Atenolol 25 mg daily. 4. Aspirin 81 mg daily. 5. Amlodipine 5 mg daily. LABORATORY DATA AND STUDIES PERFORMED DURING THE HOSPITAL STAY: Included: On 12/24/17, sodium of 139, potassium of 4.0, chloride 118, carbon dioxide 24, BUN 27, creatinine 1.33. Troponins were negative throughout the patient's hospital stay at 0. TSH was 3.7 at admission. White blood cell count of 5.2, hemoglobin of 11.5, hematocrit of 33 and platelets of 220. Urinalysis showed trace esterase, trace white blood cells, no bacteria. Cultures were negative. Echocardiogram showed EF of 60% to 65% with increased basal septal hypertrophy noted without evidence of an increased gradient across the left ventricular outflow tract. There was borderline aortic stenosis present and mild mitral regurgitation and [id number] tricuspid regurgitation. HOSPITALIZATION COURSE: Ana Cristina Culp is a 77-year-old female with a history of chronic kidney disease, hypertension, who presented to the hospital after she "felt funny" after a dinner, had an episode of syncope and then started dry heaving and vomiting. The patient had acute kidney injury with creatinine over 2 at admission. It appeared that maybe it was situational syncope due to increased vagal tone with vomiting. The patient was placed on intravenous hydration and telemetry- monitored bed. She did well over less than 24 hours of her hospital stay. She tolerated a regular diet without any problems by the time of discharge and complained of no further nausea and vomiting or abdominal pain. Her kidney function recovered by the time of discharge after rehydration. Her echocardiogram was unremarkable. She underwent Physical Therapy evaluation, who recommended ambulation with a walker. PHYSICAL EXAMINATION: At time of discharge is unchanged from admission. [id number]/[facility] #: [id number] SHARMIN
== END 2017-12-24 15:40 | disposition home or self-care (01) ==
LOC: ED 00:03 → MEDTELE 07:49
PROVIDERS: ADMIT Internal Medicine; ATTEND Internal Medicine
DX: R55 Syncope and collapse (principal); R11.10 Vomiting, unspecified; E11.9 Type 2 diabetes mellitus without complications; I10 Essential (primary) hypertension; N18.3 Chronic kidney disease, stage 3 (moderate); M25.552 Pain in left hip; G89.29 Other chronic pain; R53.1 Weakness; N17.9 Acute kidney failure, unspecified
CPT/HCPCS: 36415; 70450; 71046; 80048; 80053; 81003; 81015; 84443; 84484; 85025; 85610; 87086; 93005; 93306; 99284; A9270-GY; G0378; G8978-GP-CI; G8979-GP-CI; G8987-GO-CI; G8988-GO-CI; G8989-GO-CI; J1644

== ENCOUNTER 2018-07-14 15:07 | Emergency (ER) | payer MEDICARE ==
[2018-07-14 15:20] VITALS: BP 149/55
[2018-07-14] MEDS ORDERED: Ibuprofen TAB* 600 MG PO ONE (15:23)
--- NOTE | 2018-07-14 15:30 | UC ---
Shoulder Pain HPI - HPI Summary HPI Summary: 78-year-old female comes in with a chief complaint of left shoulder pain. Pains started when she rolled over on her shoulder this morning. Pains primarily in the scapula. Pain is worse when she attempts to raise her left arm. It's better when she doesn't move it. No weakness. No chest pain or shortness of breath. - History of Current Complaint Chief Complaint: UCUpperExtremity Stated Complaint: L SHOULDER COMPLAINT Time Seen by Provider: 07/14/18 15:16 Hx Last Menstrual Period: post Pain Intensity: 8 - Allergies/Home Medications Allergies/Adverse Reactions: Allergies Allergy/AdvReac Type Severity Reaction Status Date / Time Penicillins Allergy Rash Verified 07/14/18 15:20 Tetanus Vaccines and Toxoid Allergy Rash Verified 07/14/18 15:20 SPIDER BITES Allergy Severe "THEY Uncoded 07/14/18 15:20 DON'T HEAL" PMH/Surg Hx/FS Hx/Imm Hx Previously Healthy: Yes Cardiovascular History: Hypertension Other History Of: Negative For: Anticoagulant Therapy - Surgical History Surgical History: Yes Surgery Procedure, Year, and Place: HYSTERECTOMY 1996. Tonsil removal - Family History Known Family History: Positive: Unknown - Adopted - Social History Alcohol Use: None Substance Use Type: None Smoking Status (MU): Never Smoked Tobacco - Immunization History Most Recent Influenza Vaccination: 2016 Most Recent Pneumonia Vaccination: 2016 Review of Systems All Other Systems Reviewed And Are Negative: Yes Constitutional: Positive: Negative Skin: Positive: Negative Eyes: Positive: Negative ENT: Positive: Negative Respiratory: Positive: Negative Cardiovascular: Positive: Negative Gastrointestinal: Positive: Negative Motor: Positive: Decreased ROM - SEE HPI Neurovascular: Positive: Negative Musculoskeletal: Positive: Other: - SEE HPI Neurological: Positive: Negative Psychological: Positive: Negative Is Patient Immunocompromised?: No Physical Exam Triage Information Reviewed: Yes Appearance: Well-Appearing, Well-Nourished, Pain Distress - MILD WITH ATTEMPT AT LT SHOULDER ROM Vital Signs: Initial Vital Signs Temp 98 F 07/14/18 15:14 Pulse 63 07/14/18 15:14 Resp 17 07/14/18 15:14 BP 149/55 07/14/18 15:14 Pulse Ox 100 07/14/18 15:14 Vital Signs Reviewed: Yes Eye Exam: Normal Eyes: Positive: Conjunctiva Clear Neck exam: Normal Neck: Positive: Supple, Nontender Respiratory: Positive: Lungs clear, Normal breath sounds, No respiratory distress Cardiovascular: Positive: RRR Musculoskeletal: Positive: Other: - Patient is tender to palpation on the medial aspect of the left scapula. The shoulder joint itself is nontender. Normal radial pulses fingers wrist elbows all have full range of motion and full strength. Normal Capillary refill. Shoulder extension on the right 150 on the left 70. Shoulder abduction on the right 150 on the left 70. Shoulder internal rotation L5 on the right and on the left. Neurological Exam: Normal Neurological: Positive: Alert, Muscle Tone Normal Psychological Exam: Normal Psychological: Positive: Age Appropriate Behavior Skin Exam: Normal Shoulder Course/Dx - Course Course Of Treatment: Order Information: SHOULDER LEFT 2+ VWS. Accession Number : [id number]. CPT: 49847. Indication: LEFT shoulder burning sensation posteriorly began this morning without. preceding injury. Comparison: No relevant prior exams available on the [facility] for comparison. Technique: Internal rotation AP, external rotation Grashey, scapular Y, modified axillary. views LEFT shoulder. Report: Negative for fracture. Normal acromioclavicular and glenohumeral joint alignment. Minimal acromioclavicular and glenohumeral joint osteophytosis. Small inferior acromial. bone spur. Negative for calcific tendinopathy or abnormal soft tissue contour. IMPRESSION: #. Mild osteoarthritis. . <Electronically signed by Bassam Means MD in OV> 07/14/18 2253. I discussed the x-ray reports with the patient. The location of her pain along the medial border of the scapula is consistent with a muscle sprain. The overall plan is ibuprofen 600 mg by mouth 3 times a day when necessary. Also recommended using lidocaine patch if helpful. - Differential Dx/Diagnosis Provider Diagnosis: Pain of left scapula Discharge - Sign-Out/Discharge Documenting (check all that apply): Patient Departure All imaging exams completed and their final reports reviewed: Yes - Discharge Plan Condition: Stable Disposition: HOME Patient Education Materials: Shoulder Pain (ED) Referrals: Sherwin Lowry DO [Primary Care Provider] - Additional Instructions: FOLLOW UP WITH YOUR DOCTOR IF NOT COMPLETELY IMPROVED. TAKE IBUPROFEN 600MG THREE TIMES A DAY IF HELPFUL. USE A LIDOCAINE PATCH IF HELPFUL. GET RECHECKED FOR ANY WORSENING OF YOUR CONDITION OR QUESTIONS OR CONCERNS. - Billing Disposition and Condition Condition: STABLE Disposition: Home
== END 2018-07-14 16:15 | disposition home or self-care (01) ==
LOC: UCEAST 15:07
DX: M89.8X1 Other specified disorders of bone, shoulder (principal); I10 Essential (primary) hypertension; Z88.0 Allergy status to penicillin; Z88.7 Allergy status to serum and vaccine; Z91.030 Bee allergy status
CPT/HCPCS: 99211; A9270-GY; G0463

== ENCOUNTER 2021-10-07 11:35 | Observation (INO) ==
[2021-10-07] MEDS ORDERED: Lactated Ringers 1000 ml BAG 1,000 ML IV ONE ×3 (11:53→18:56)
[2021-10-07 12:17] LABS: ABS Basophils 0.1 10^3/ul (0-0.2); ABS Eosinophils 0.1 10^3/ul (0-0.6); ABS Lymphocytes 1.1 10^3/ul (1.0-4.8); ABS Monocytes 0.4 10^3/ul (0-0.8); ABS Neutrophils 6.2 10^3/ul (1.5-7.7); Eosinophil % 1.3 %; Hematocrit 40 % (35-47); Hemoglobin 13.7 g/dL (12.0-16.0); Lymphocyte % 13.6 %; Mean Corpuscular HGB Conc 34 g/dL (31-36); Mean Corpuscular Hemoglobin 31 pg (27-31); Mean Corpuscular Volume 91 fL (80-97); Mean Platelet Volume 8.1 fL (7.4-10.4); Platelet Count 251 10^3/uL (150-450); Red Blood Count 4.43 10^6 /uL (3.70-4.87); Red Cell Distribution Width 14 % (10-15); White Blood Count 7.9 10^3/uL (3.5-10.8)
[2021-10-07 13:06] LABS: ALT 11 U/L (7-52); Albumin/Globulin Ratio 1.4 (1-3); Alkaline Phosphatase 55 U/L (35-149); Blood Urea Nitrogen 25 mg/dL (6-24); CO2 Carbon Dioxide 26 mmol/L (22-32); Calcium 9.5 mg/dL (8.6-10.3); Chloride 101 mmol/L (101-111); Globulin 2.8 g/dL (2-4); Glucose 111 mg/dL (70-100); Sodium 136 mmol/L (135-145); Total Protein 6.8 g/dL (6.4-8.9); eGFR CKD-EPI 37.8 (>60)
[2021-10-07 13:08] LABS: Anion Gap 9 mmol/L (2-11)
[2021-10-07 14:36] LABS: Urine Appearance Clear; Urine Bilirubin Negative (Negative); Urine Blood Negative (Negative); Urine Color Straw; Urine Glucose Negative (Negative); Urine Ketones Negative (Negative); Urine Nitrite Negative (Negative); Urine Protein Negative (Negative); Urine Specific Gravity 1.006 (1.002-1.030); Urine Urobilinogen Negative (Negative)
[2021-10-07 16:03] LABS: Potassium Redraw 4.6 mmol/L (3.5-5.0)
[2021-10-07] MEDS ORDERED: Ondansetron 4 mg VIAL 2 MG/ML 2 ml VIAL IV PRN (18:51)
[2021-10-07] MEDS: Heparin 5000 UNITS/ML 1 mL VIAL SUBCUT SCH (21:50)
[2021-10-08] MEDS: Heparin 5000 UNITS/ML 1 mL VIAL SUBCUT SCH ×3 (05:58→21:14)
[2021-10-08 07:39] LABS: Calcium 8.4 mg/dL (8.6-10.3); Potassium 3.9 mmol/L (3.5-5.0); eGFR CKD-EPI 47.4 (>60)
[2021-10-08 09:56] LABS: Magnesium 1.6 mg/dL (1.9-2.7)
[2021-10-08] MEDS ORDERED: Magnesium Sulf 4 GM/100 ML IV 4,000 MG/100 ML BAG IVPB ONE (13:36)
[2021-10-09] MEDS: Heparin 5000 UNITS/ML 1 mL VIAL SUBCUT SCH ×2 (05:17→13:34)
[2021-10-09 05:41] LABS: Hematocrit 34 % (35-47); Hemoglobin 11.8 g/dL (12.0-16.0); Mean Corpuscular HGB Conc 34 g/dL (31-36); Mean Corpuscular Hemoglobin 31 pg (27-31); Mean Corpuscular Volume 89 fL (80-97); Mean Platelet Volume 7.7 fL (7.4-10.4); Platelet Count 193 10^3/uL (150-450); Red Blood Count 3.83 10^6 /uL (3.70-4.87); Red Cell Distribution Width 14 % (10-15); White Blood Count 5.2 10^3/uL (3.5-10.8)
[2021-10-09 06:15] LABS: Calcium 8.7 mg/dL (8.6-10.3); Magnesium 2.5 mg/dL (1.9-2.7); Potassium 4.2 mmol/L (3.5-5.0); eGFR CKD-EPI 40.2 (>60)
[2021-10-09 11:21] VITALS: BP 144/60
== END 2021-10-09 17:15 | disposition home or self-care (01) ==
LOC: ED 11:35 → MEDTELE 11:35 → SUATTDRO 18:51 → MEDTELE 22:58
PROVIDERS: ADMIT Hospitalist; ATTEND Internal Medicine